=== PATIENT | male | born 1930 | race Caucasian/White ===

== ENCOUNTER 2016-11-22 09:19 | Inpatient (IN) | payer MEDICARE, OTHER ==
[~2016-11-22] VITALS: Ht 167.6 cm; Wt 85.0 kg
[2016-11-22] VITALS (13 sets, daily range): BP systolic 112–131; BP diastolic 71–89; PULSE 81–97; RESP 18–20; TEMP 97.3–98.8; O2SAT 96–98
[~2016-11-22 09:19] MED LIST: ALFU1TAB10 PO; ASPI81 PO; CALC250 PO; CELE10TA9 PO; CHOL4POW4 PO; COMMODE 3:1; DORZO2%O EACH EYE; Hydrochlorothiazide PO; LATA.005%O EACH EYE; MVI PO; PLAV75TA PO; PRIN20TA2 PO; VITA20003 PO; ZOCO40TA PO
[2016-11-22] MEDS ORDERED: CLOP75TA PO (09:36)
[2016-11-22] MEDS ORDERED: CALC500T35 (09:36)
[2016-11-22] MEDS ORDERED: B-122000 PO (09:36)
[2016-11-22] MEDS ORDERED: SIMV10TA PO (09:36)
[2016-11-22] MEDS ORDERED: CHOL4POW3 PO (09:36)
[2016-11-22] MEDS ORDERED: CITA10TA4 PO (09:36)
[2016-11-22] MEDS ORDERED: DORZ2SOL EACH EYE (09:36)
[2016-11-22] MEDS ORDERED: ALFU10TA2 PO (09:36)
[2016-11-22] MEDS ORDERED: VITA200013 (09:36)
[2016-11-22] MEDS ORDERED: ASPI-110 PO (09:36)
[2016-11-22] MEDS ORDERED: LISI20TA PO (09:36)
[2016-11-22] MEDS ORDERED: LATA0.002 EACH EYE (09:36)
--- NOTE | 2016-11-22 09:40 | PD ---
HPI Chief Complaint: Syncope/Near-Syncope Time Seen by Provider: 09:26 Travel History International Travel<30 days: No Contact w/Intl Traveler<30days: No Traveled to known affect area: No History of Present Illness HPI 85-year-old male came to the emergency room with history of dizziness, nausea and vomiting brought by EMS. Patient's says that he started dry heaving this morning and at one point she thought he was having seizure which made her call 911. Patient looks very comfortable right now and is not complaining of any pain, chest pain or any other symptoms. He does not recall about the vomiting or seizure. PFS Past Medical History Narrative Medical List of his past medical history is reviewed from the nursing note. 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; UNKNOWN WHAT TYPE) Hiatal Hernia: No Hypertension: Yes Immune Disorder: No Kidney Stones: No Musculoskeletal: Yes Neurologic: No Psychiatric: No Reproductive: No Respiratory: No Migraines: No Myocardial Infarction: Yes Radiation Therapy: No Renal Failure: Yes Seizures: No Sickle Cell Disease: No Sleep Apnea: Yes Thyroid Disease: No Ulcer: No Past Surgical History Abdominal Surgery: Yes (APPENDECTOMY) AICD: No Appendectomy: Yes Arteriovenous Shunt: No Cardiac Surgery: No Cholecystectomy: Yes Ear Surgery: No Endocrine Surgery: No Eye Surgery: Yes (RIGHT EYE CATARACT SX) Genitourinary Surgery: Yes Gynecologic Surgery: No Insulin Pump: No Joint Replacement: No Oral Surgery: No Pacemaker: No Thoracic Surgery: Yes (STENT PLACEMENT) Other Surgery: Yes (CARPAL TUNNEL RELEASE BK) Social History Alcohol Use: Yes ("occasionally") Tobacco Use: Yes (CIGARS OCCASIONALLY) Substance Use: No Allergies-Medications (Allergen,Severity, Reaction): Coded Allergies: Vioxx (Verified Allergy, Severe, Diarrhea, 11/22/16) Comments List of his allergies reviewed from the nursing note. Reported Meds & Prescriptions Reported Meds & Active Scripts Active Reported Calcium (Oyster Shell) 500 Mg Tab 250 Vitamin D (Cholecalciferol) 2,000 Unit Cap B-12 (Cyanocobalamin) 2,000 Mcg Tab 2,000 Mcg PO DAILY Aspirin 81 (Aspirin) 81 Mg Tabdr 81 Mg PO DAILY Cholestyramine 4 Gm/Dose Powd 4 Gm PO BID 1 level scoopful of powder contains 4 grams of cholestyramine. Simvastatin 10 Mg Tab 10 Mg PO DAILY Latanoprost Opth Drops (Latanoprost) 0.005% Drops 1 Drop EACH EYE HS Refrigerate until opened. Dorzolamide Opth Drops (Dorzolamide HCl) 2% Soln 1 Drop EACH EYE TID Alfuzosin ER 24 HR 10 Mg Tab 10 Mg PO DAILY Clopidogrel (Clopidogrel Bisulfate) 75 Mg Tab 75 Mg PO DAILY Citalopram (Citalopram Hydrobromide) 10 Mg Tab 5 Mg PO DAILY Lisinopril-Hctz 20-12.5 Mg Tab 1 Tab PO DAILY Narrative Medication List of his home medications reviewed from the nursing note. Review of Systems Except as stated in HPI: all other systems reviewed are Neg Physical Exam Narrative GENERAL: Awake, alert, elderly, hard of hearing, no obvious distress SKIN: Warm and dry. HEAD: Atraumatic. Normocephalic. EYES: Pupils equal and round. No scleral icterus. No injection or drainage. ENT: No nasal bleeding or discharge. Mucous membranes pink and moist. NECK: Trachea midline. No JVD. CARDIOVASCULAR: Regular rate and rhythm. No murmur appreciated. RESPIRATORY: No accessory muscle use. Clear to auscultation. Breath sounds equal bilaterally. GASTROINTESTINAL: Abdomen soft, non-tender, nondistended. Hepatic and splenic margins not palpable. MUSCULOSKELETAL: No obvious deformities. No clubbing. No cyanosis. No edema. NEUROLOGICAL: Awake and alert. No obvious cranial nerve deficits. Motor grossly within normal limits. Normal speech. PSYCHIATRIC: Appropriate mood and affect; insight and judgment normal. Data Data Last Documented VS Vital Signs Date Time Temp Pulse Resp B/P Pulse Ox O2 Delivery O2 Flow Rate FiO2 11/22/16 09:45 96 Room Air 11/22/16 09:23 97.3 18 117/71 Orders Prothrombin Time / Inr (Pt) (11/22/16 09:54) Complete Blood Count With Diff (11/22/16 09:54) Basic Metabolic Panel (Bmp) (11/22/16 09:54) Troponin I (11/22/16 09:54) Ct Brain W/O Iv Contrast(Rout) (11/22/16 09:54) Ecg Monitoring (11/22/16 09:54) Iv Access Insert/Monitor (11/22/16 09:54) Oximetry (11/22/16 09:54) Sodium Chloride 0.9% Flush (Ns Flush) (11/22/16 10:00) Sodium Chlorid 0.9% 500 Ml Inj (Ns 500 M (11/22/16 10:00) Chest, Single Ap (11/22/16 ) Aspirin Chew (Aspirin Chew) (11/22/16 11:00) Admit Order (Ed Use Only) (11/22/16 11:17) Labs Laboratory Tests Test 11/22/16 09:50 White Blood Count 5.5 TH/MM3 Red Blood Count 3.83 MIL/MM3 Hemoglobin 13.2 GM/DL Hematocrit 38.9 % Mean Corpuscular Volume 101.6 FL Mean Corpuscular Hemoglobin 34.6 PG Mean Corpuscular Hemoglobin 34.1 % Concent Red Cell Distribution Width 13.4 % Platelet Count 71 TH/MM3 Mean Platelet Volume 11.7 FL Neutrophils (%) (Auto) 87.3 % Lymphocytes (%) (Auto) 7.3 % Monocytes (%) (Auto) 5.0 % Eosinophils (%) (Auto) 0.1 % Basophils (%) (Auto) 0.3 % Neutrophils # (Auto) 4.8 TH/MM3 Lymphocytes # (Auto) 0.4 TH/MM3 Monocytes # (Auto) 0.3 TH/MM3 Eosinophils # (Auto) 0.0 TH/MM3 Basophils # (Auto) 0.0 TH/MM3 CBC Comment AUTO DIFF Differential Comment AUTO DIFF CONFIRMED Platelet Estimate LOW Platelet Morphology Comment ENLARGED Helmet Cells OCC [place] Cells 1+ Acanthocytes 1+ Keratocytes OCC Prothrombin Time 13.3 SEC Prothromb Time International 1.2 RATIO Ratio Sodium Level 134 MEQ/L Potassium Level 3.8 MEQ/L Chloride Level 97 MEQ/L Carbon Dioxide Level 25.9 MEQ/L Anion Gap 11 MEQ/L Blood Urea Nitrogen 20 MG/DL Creatinine 1.44 MG/DL Estimat Glomerular Filtration 47 ML/MIN Rate Random Glucose 156 MG/DL Calcium Level 8.8 MG/DL Troponin I 1.81 NG/ML [facility] Medical Decision Making Medical Screen Exam Complete: Yes Emergency Medical Condition: Yes Medical Record Reviewed: Yes Interpretation(s) Twelve-lead EKG was reviewed by me. Normal sinus rhythm, right bundle branch block, right axis deviation. Heart rate of 86 bpm. Morphology of QRS looks different from the last EKG and records which was from September 2014. Differential Diagnosis CVA, TIA, intracranial bleed Narrative Course 11:10 AM blood test results of back and the troponin is significantly elevated. I went back and asked the patient again about chest pain and he is still denying. His is here and confirms that story. Patient does have history of coronary artery disease and had a stent put in in 2007. It was done by Dr. Garrett and the patient and his are requesting Dr. Garrett. A call has been placed to him. Rest of the blood test result shows thrombocytopenia. I've given him 2 baby aspirin. Given the [facility] at [facility] I have not ordered any heparin. I'll discuss with Dr. Garrett. Patient was admitted to the residents to CICU. His CAT scan of the head was stable without any acute changes. 11:22 AM case was discussed with Dr. Valdes who is covering for Dr. Garrett. He will follow-up on the patient. Critical Care Narrative Aggregate critical care time was 30 minutes. Time to perform other separately billable procedures was not included in the critical care time. My time did not include minutes spent treating any other patients simultaneously or on activities that did not directly contribute to the patient's treatment. The services I provided to this patient were to treat and/or prevent clinically significant deterioration that could result in: Syncope, elevated troponin, acute coronary syndrome I provided critical care services requiring my management, as noted below: Chart data review, documentation time, medication orders and management, vital sign assessments/reviewing monitor data, ordering and reviewing lab tests, ordering and interpreting/reviewing x-rays and diagnostic studies, care of the patient and discussion of the patient with the admitting physicians. Procedures EKG Prior to Arrival: Yes Physician Communication Physician Communication Dr. Valdes Diagnosis Primary Impression: Acute coronary syndrome Additional Impressions: Elevated troponin I level Syncope Qualified Code: R55 - Syncope, unspecified syncope type Thrombocytopenia Admitting Information Admitting Physician Requests: it Abi Ontiveros MD Nov 22, 2016 09:40
[2016-11-22] MEDS ORDERED: SODIUM CHLORID 0.9% 500 ML INJ 500 ML IV ONE (10:00)
[2016-11-22] MEDS ORDERED: SODIUM CHLORIDE 0.9% FLUSH 5 ML FLUSH IVF PRN (10:00)
[2016-11-22 10:20] LABS: AUTOMATED NEUTROPHIL # 4.8 TH/MM3 (1.8-7.7); BASOPHIL % 0.3 % (0.0-2.0); EOSINOPHIL % 0.1 % (0.0-4.0); HEMATOCRIT 38.9 % (39.0-51.0); LYMPH % 7.3 % (9.0-44.0); LYMPHOCYTE # 0.4 TH/MM3 (1.0-4.8); MEAN CELL VOLUME 101.6 FL (80.0-100.0); MEAN CORPUSCULAR HEMOGLOBIN 34.6 PG (27.0-34.0); MEAN CORPUSCULAR HGB CONC 34.1 % (32.0-36.0); NEUT % 87.3 % (16.0-70.0); PLATELET COUNT 71 TH/MM3 (150-450); RED BLOOD COUNT 3.83 MIL/MM3 (4.50-5.90); RED CELL DISTRIBUTION WIDTH 13.4 % (11.6-17.2); WHITE BLOOD COUNT 5.5 TH/MM3 (4.0-11.0)
[2016-11-22 10:24] LABS: HEMO FLAGS AUTO DIFF
[2016-11-22 10:28] LABS: BICARBONATE 25.9 MEQ/L (21.0-32.0); POTASSIUM 3.8 MEQ/L (3.5-5.1)
[2016-11-22 10:29] LABS: INTERNATIONAL NORMALIZED RATIO 1.2 RATIO; PROTHROMBIN TIME - PATIENT 13.3 SEC (9.8-11.6)
[2016-11-22 10:52] LABS: PLATELET ESTIMATE SMEAR LOW (NORMAL); PLATELET MORPHOLOGY ENLARGED (NORMAL); SCAN/DIFF AUTO DIFF CONFIRMED
[2016-11-22 10:53] LABS: ACANTHOCYTES 1+ (NORMAL); BURR CELLS 1+ (NORMAL); HELMET CELLS OCC (NORMAL); KERATOCYTES OCC (NORMAL)
--- NOTE | 2016-11-22 10:53 | RADRPT ---
EXAM DATE/TIME: 11/22/2016 10:38 [facility] COMPARISON: No previous studies available for comparison. INDICATIONS : Near syncopal episode. RADIATION DOSE: 56.35 CTDIvol (mGy) MEDICAL HISTORY : Carcinoma, not otherwise specified. Hypertension. Cardiovascular disease SURGICAL HISTORY : None. ENCOUNTER: Initial ACUITY: 1 day PAIN SCALE: 0/10 LOCATION: cranial TECHNIQUE: Multiple contiguous axial images were obtained of the head. Using automated exposure control and adj ustment of the mA and/or kV according to patient size, radiation dose was kept as low as reasonably a chievable to obtain optimal diagnostic quality images. FINDINGS: There is marked central and cortical atrophy with dilatation of ventricular and sulcal spaces. There is no parenchymal hemorrhage, acute infarction or mass lesion identified. There are no extra-axial fluid collections appreciated. The posterior fossa is unremarkable with midline fourth ventricle. T he portion of the orbits and paranasal sinuses visualized are unremarkable. CONCLUSION: Stable examination. No interval change Erik Shaikh MD on November 22, 2016 at 10:51 Board Certified Radiologist. This report was verified electronically.
[2016-11-22] MEDS ORDERED: ASPIRIN 81 MG CHEW TAB CHEW ONE (11:00)
--- NOTE | 2016-11-22 11:32 | RADRPT ---
EXAM DATE/TIME: 11/22/2016 11:06 [facility] COMPARISON: CHEST SINGLE AP, September 30, 2014, 10:09. INDICATIONS : Syncope, Short of Breath. MEDICAL HISTORY : Carcinoma, not otherwise specified. Hypertension. Cardiovascular disease SURGICAL HISTORY : Stent. ENCOUNTER: Initial ACUITY: 1 day PAIN SCORE: 0/10 LOCATION: Bilateral chest FINDINGS: A single view of the chest demonstrates mild perihilar vascular congestion is developing airspace dis ease in the lung bases right greater than left. The cardiac silhouette remains widened. Small lung v olumes. No pneumothorax.. Osseous structures are intact. CONCLUSION: Some pulmonary vascular congestion with bilateral infiltrates right greater left. Cardiac silhouette is widened Erik Shaikh MD on November 22, 2016 at 11:29 Board Certified Radiologist. This report was verified electronically.
--- NOTE | 2016-11-22 11:36 | HHI.HP ---
HPI Service Family Medicine Team A Dr. English attending Dr. Yee PGY2 Dr. Rivera PGY1 Dr. Sierra PGY3 Primary Care Physician Nikky Evangelista MD Admission Diagnosis syncope, elevated troponin, thrombocytopenia Diagnoses: International Travel<30 Days: No Contact w/Intl Traveler<30days: No Known Affected Area: No History of Present Illness This is an 85 yo male who presented to ED by [facility] for dizziness, N/V and weakness. reports she woke up around 7 am and her was sitting in chair with a bucket, she states there was yellow fluid. She states he was walking to the bathroom and started "bouncing off the gutierrez" she said his whole body was shaking and he was not responsive. She ended up helping him to the ground, his eyes were open, but notes he was not with it. She took his BP (she is a retired nurse) 90/44. called 911. She states evac came, and they stood him up and his blood pressure got even lower. The they decided to bring him to the ER. The patient does not remember the events this morning. The patient states he remembers waking up this morning, his knees were bothering him and he was having a hard time walking so went and sat in the chair. There was no loss of bowel or bladder. He did not bite is tongue. He does remember the EMS coming, he said they looked like, "huge elephants." Nothing like this has ever happened before. He is scheduled to see Dr. Garrett in Dec. He saw his PCP last month and was given a clean bill. In the ED patient was found to have an elevated troponin of 1.8, renal insufficiency, and EKG findings significant for new right bundle branch block. Dr Medina was contacted (covering for Dr. Garrett who has seen the patient in the past). 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 ) Ears, nose, mouth, throat: COMPLAINS OF: Hearing loss Respiratory: DENIES: Cough, Shortness of breath Cardiovascular: COMPLAINS OF: Lower Extremity Edema, DENIES: Chest pain, Palpitations, Syncope Gastrointestinal: COMPLAINS OF: Nausea, Vomiting, DENIES: Abdominal pain Musculoskeletal: COMPLAINS OF: Joint pain, Muscle aches, Stiffness Hematologic/lymphatic: COMPLAINS OF: Bruising Neurologic: COMPLAINS OF: Abnormal gait, Headache, Poor Balance Psychiatric: DENIES: Mood changes Past Family Social History Past Medical History Hx Hepatitis HTN NM wx Stent placement 08 Colitis sleep apnea Past Surgical History Bilateral knee replacements' appendectomy carpal tunnel surgery both hands Reported Medications Reported Calcium (Oyster Shell) 500 Mg Tab 250 Vitamin D (Cholecalciferol) 2,000 Unit Cap B-12 (Cyanocobalamin) 2,000 Mcg Tab 2,000 Mcg PO DAILY Aspirin 81 (Aspirin) 81 Mg Tabdr 81 Mg PO DAILY Cholestyramine 4 Gm/Dose Powd 4 Gm PO BID 1 level scoopful of powder contains 4 grams of cholestyramine. Simvastatin 10 Mg Tab 10 Mg PO daily Latanoprost Opth Drops (Latanoprost) 0.005% Drops 1 Drop EACH EYE HS Refrigerate until opened. Dorzolamide Opth Drops (Dorzolamide HCl) 2% Soln 1 Drop EACH EYE TID Alfuzosin ER 24 HR 10 Mg Tab 10 Mg PO DAILY Clopidogrel (Clopidogrel Bisulfate) 75 Mg Tab 75 Mg PO DAILY Citalopram (Citalopram Hydrobromide) 10 Mg Tab 5 Mg PO DAILY Lisinopril-Hctz 20-12.5 Mg Tab 1 Tab PO DAILY Allergies: Coded Allergies: Vioxx (Verified Allergy, Severe, Diarrhea, 11/22/16) Family History Mother of heart trouble at a young age- multiple NM CHF Physical Exam Vital Signs Vital Signs Date Time Temp Pulse Resp B/P Pulse Ox O2 Delivery O2 Flow Rate FiO2 11/22/16 09:37 96 Room Air 11/22/16 09:23 97.3 18 117/71 96 Physical Exam GENERAL: This is a well-nourished, well-developed patient, in no apparent distress. Hearing aids in. SKIN: multiple ecchymoses of LE. 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 HEAD: Atraumatic. Normocephalic. No temporal or scalp tenderness. EYES: RT Pupil equal round and reactive. LT pupil non reactive. Extraocular motions intact. No scleral icterus. No injection or drainage. ENT: Nose without bleeding, purulent drainage or septal hematoma. Throat without erythema, tonsillar hypertrophy or exudate. Uvula midline. Airway patent. NECK: Trachea midline. No JVD or lymphadenopathy. Supple, nontender, no meningeal signs. CARDIOVASCULAR: Regular rate and rhythm without murmurs, gallops, or rubs. RESPIRATORY: Clear to auscultation. Breath sounds equal bilaterally. No wheezes , rales, or rhonchi. GASTROINTESTINAL: Abdomen soft, non-tender, nondistended. No guarding. MUSCULOSKELETAL: Extremities without clubbing, or cyanosis. +1LE edema of LE. No joint tenderness, effusion, or edema noted. No calf tenderness. NEUROLOGICAL: Awake and alert. Motor and sensory grossly within normal limits. Able to lift LE against gravity. Normal speech. Laboratory Laboratory Tests Test 11/22/16 09:50 White Blood Count 5.5 Red Blood Count 3.83 Hemoglobin 13.2 Hematocrit 38.9 Mean Corpuscular Volume 101.6 Mean Corpuscular Hemoglobin 34.6 Mean Corpuscular Hemoglobin 34.1 Concent Red Cell Distribution Width 13.4 Platelet Count 71 Mean Platelet Volume 11.7 Neutrophils (%) (Auto) 87.3 Lymphocytes (%) (Auto) 7.3 Monocytes (%) (Auto) 5.0 Eosinophils (%) (Auto) 0.1 Basophils (%) (Auto) 0.3 Neutrophils # (Auto) 4.8 Lymphocytes # (Auto) 0.4 Monocytes # (Auto) 0.3 Eosinophils # (Auto) 0.0 Basophils # (Auto) 0.0 CBC Comment AUTO DIFF Differential Comment AUTO DIFF CONFIRMED Platelet Estimate LOW Platelet Morphology Comment ENLARGED Helmet Cells OCC Valerio Cells 1+ Acanthocytes 1+ Keratocytes OCC Prothrombin Time 13.3 Prothromb Time International 1.2 Ratio Sodium Level 134 Potassium Level 3.8 Chloride Level 97 Carbon Dioxide Level 25.9 Anion Gap 11 Blood Urea Nitrogen 20 Creatinine 1.44 Estimat Glomerular Filtration 47 Rate Random Glucose 156 Calcium Level 8.8 Troponin I 1.81 Result Diagram: 11/22/16 0950 11/22/16 0950 Imaging Last Impressions Head CT 11/22/16 0954 Signed Impressions: Service Date/Time: Tuesday, November 22, 2016 10:38 - CONCLUSION: Stable examination. No interval change Erik Shaikh MD Assessment and Plan Assessment and Plan 85 yo male presents to ED w/N/V/ presyncope found to have elevated troponin and EKG findings. Discussed Condition With Dr. Yee ED physician wdw Dr. English Problem List: (1) Elevated troponin I level Status: Acute Plan: Upon on admission 1.81 with EKG findings suggestive of right bundle branch block. No ST elevations noted. Patient does have a cardiac history. He is denying active chest pain. Of note patient has some renal insufficiency with a creatinine of 1.44, baseline is less than 1. Dr. Valdes is aware of the patient and will make further recommendations. (2) Pre-syncope Status: Acute Plan: Patient presenting with sounds like presyncopal. There was no loss of consciousness. reported some jerking movements, the patient has no history of seizures. There were no loss of bladder or bowel dysfunction. There was no biting of the tongue. Patient noted to have hypotension at the time of the event. Likely causes include vasovagal versus orthostatic hypotension versus seizure versus other. - We'll hold BP medications as patient is still hypotensive - Ortho static vitals - telemetry - US carotids - ECHO (last was in 2007 in EMR, likely has one after this) - PT eval (3) CAD (coronary artery disease) Status: Chronic Plan: -Medical history significant for NM with stent placement. We'll continue patient's aspirin and Plavix. (4) Thrombocytopenia Status: Acute Plan: Марина on admission 71. Baseline in the 90s. Unclear etiology. (5) HTN (hypertension) Status: Chronic Plan: We'll hold patient's home lisinopril and hydrochlorothiazide for hypotension (6) FELIBERTO (acute kidney injury) Status: Acute Plan: Creatinine on admission 1.44. Baseline appears to be 0.6. We'll avoid nephrotoxic agents including his ISRA inhibitor and provide gentle hydration. (7) FEN Status: Acute Plan: Fluids: gentle hydration IVF NS @ 100 cc/hr for renal insufficiency Electrolytes: Na 134, getting gentle hydration Nutrition: heart healthy diet PT DVT prophylaxis with SCDs Physician Certification 2 Midnight Certification Type: Admission for Inpatient Services Order for Inpatient Services The services are ordered in accordance with Medicare regulations or non- Medicare payer requirements, as applicable. In the case of services not specified as inpatient-only, they are appropriately provided as inpatient services in accordance with the 2-midnight benchmark. Estimated LOS (days): 3 days is the estimated time the patient will need to remain in the hospital, assuming treatment plan goals are met and no additional complications. Post-Hospital Plan: Not yet determined Luh Sierra MD R3 Nov 22, 2016 11:36
[2016-11-22] MEDS ORDERED: NALOXONE HCL 0.4 MG/ML AMP IV PRN (12:15)
[2016-11-22] MEDS ORDERED: ONDANSETRON HCL 4 MG/2 ML VIAL IVP PRN (12:15)
[2016-11-22] MEDS ORDERED: SODIUM CHLORIDE 0.9% FLUSH 5 ML FLUSH FLUSH PRN (12:15)
[2016-11-22] MEDS ORDERED: ACETAMINOPHEN 325 MG TAB PO PRN (12:15)
[2016-11-22] MEDS ORDERED: SODIUM CHLOR 0.9% 1000 ML INJ 1,000 ML IV SCH (13:00)
[2016-11-22] MEDS ORDERED: POTASSIUM CHLORIDE 20 MEQ CONTROLLED RELEASE TAB PO ONE (14:00)
[2016-11-22] MEDS ORDERED: FUROSEMIDE 20 MG/2 ML VIAL IV PUSH ONE (14:00)
--- NOTE | 2016-11-22 14:04 | HHI.FPPN ---
Addendum to progress note ADDENDUM Additional information BNP resulted elevated at 1021. Patient unsure of the last ECHO. - STOP IVF - Lasix 20 mg IV x1 (BP is now 114/83) will have to diuresis gently because of FELIBERTO and borderline hypotension - 20 meq KCL x1 - Strict I & Os - Will monitor for response and diuresis as needed. - ECHO previously ordered and pending Luh Sierra MD R3 Nov 22, 2016 14:04
--- NOTE | 2016-11-22 14:51 | EKG ---
Date Performed: 11/22/2016 Time Performed: 09:21:27 PTAGE: 85 years EKG: Sinus rhythm WITH OCCASIONAL SUPRAVENTRICULAR PREMATURE COMPLEXES POSSIBLE LEFT ATRIAL ENLARGEMENT RIGHT BUNDLE B RANCH BLOCK ANTEROSEPTAL MYOCARDIAL INFARCTION Bundle branch block and anteroseptal injury are both n ew since prior tracing Clinical correlation is strongly recommended ABNORMAL ECG PREVIOUS TRACING : 09/30/2014 09.49 DOCTOR: Harman Del Rio Interpretating Date/Time 11/22/2016 14:50:50
--- NOTE | 2016-11-22 17:04 | MB ---
cc: CONNER NEWBY MD DATE OF CONSULTATION 11/22/16 REASON FOR CONSULTATION Elevated troponin HISTORY OF PRESENT ILLNESS The patient is a very pleasant 85-hour gentleman who tried to get up to go to the bathroom but became acutely weak and somewhat disoriented. His found him to be unstable with some shaking and jerking movements. The patient himself describes feeling like he was shaking "like a dog", but he denies any chest pain at all during this episode or any time recently. Because of these symptoms, he was brought to the hospital and his initial troponin was elevated and thus I was consulted. He is currently asymptomatic and hoping to be discharged home. He denies any chest pain at all. No shortness of breath, lightheadedness, dizziness, currently just the aforementioned episode. PAST MEDICAL HISTORY 1. Coronary artery disease with HI and stent placement 2007, 2. Hepatitis 3. Hypertension. MEDICATIONS Current, 1. Aspirin 81 mg daily. 2. Celexa 5 mg daily 3. Plavix 5 mg daily. 4. Flomax 0.4 mg daily. 5. Pravachol 20 mg daily. ALLERGIES VIOXX PHYSICAL EXAMINATION VITAL SIGNS: Afebrile, pulse 97, respiratory 20, BP 114/83 satting 98 on room air. GENERAL: A pleasant elderly gentleman in no distress. NECK: No JVD. LUNGS: Clear to auscultation bilaterally. CARDIOVASCULAR: Regular rate and rhythm. No murmurs appreciated. ABDOMEN: Benign. EXTREMITIES: No edema. LABORATORY DATA Sodium 134, potassium 2.8, chloride 97, bicarb 25.9, BUN 20, creatinine 1.44, glucose 156, troponin 1.81. BNP is 1021. Urinalysis has not been done yet. INR is 1.2, white count 5.5, hematocrit 38.9, platelets 71. IMAGING STUDIES Head CT was negative. CARDIOLOGY STUDIES EKG shows sinus rhythm with right bundle-branch block. IMPRESSION 1. Elevated troponin. The patient's elevated troponin I suspect is a nonspecific finding. Given the patient's description, I think the most likely etiology of his presentation is something like a urine infection and a UA has been ordered. He has no chest pain and is obviously quite comfortable so acute coronary syndrome seems unlikely. I will trend his enzymes and make consideration toward nuclear stress test versus possible cardiac catheterization depending on the results of his blood work. Also his creatinine is a little bit above baseline, although this alone likely will not account for his elevated troponin and BNP. We will also have him undergo an echocardiogram. Further recommendations will be based on his clinical course. Thank you again for the opportunity to participate in this patient's care. MD GREGORIA Herr/ /4:25 PM /4:46 PM
[2016-11-22] MEDS ORDERED: HEPARIN SODIUM - IV 10,000 UNITS/10 ML VIAL IV PRN ×2 (20:15)
[2016-11-22] MEDS ORDERED: HEPARIN SODIUM - IV 10,000 UNITS/10 ML VIAL IV ONE (20:15)
[2016-11-22] MEDS ORDERED: HEPARIN 25,000 UNITS-D5W 250 ML - PREMIX IV SCH (20:15)
[2016-11-22] MEDS: SODIUM CHLORIDE 0.9% FLUSH 5 ML FLUSH FLUSH SCH (21:00)
[2016-11-23] VITALS (27 sets, daily range): BP systolic 105–139; BP diastolic 59–96; PULSE 63–110; RESP 18–22; TEMP 97.4–98.1; O2SAT 94–99
[2016-11-23 00:04] LABS: APTT (PATIENT) 67.6 SEC (24.3-30.1)
[2016-11-23] MEDS: CHOLESTYRAMINE 4 GM PACKET PO SCH ×3 (01:01→21:25)
[2016-11-23 04:15] LABS: HEMATOCRIT 38.4 % (39.0-51.0); MEAN CORPUSCULAR HEMOGLOBIN 34.2 PG (27.0-34.0); MEAN CORPUSCULAR HGB CONC 34.2 % (32.0-36.0); PLATELET COUNT 75 TH/MM3 (150-450); RED BLOOD COUNT 3.84 MIL/MM3 (4.50-5.90); RED CELL DISTRIBUTION WIDTH 13.3 % (11.6-17.2); WHITE BLOOD COUNT 6.2 TH/MM3 (4.0-11.0)
[2016-11-23 04:25] LABS: APTT (PATIENT) 48.1 SEC (24.3-30.1)
[2016-11-23 04:37] LABS: ALT (GPT) 29 U/L (12-78); ANION GAP 11 MEQ/L (5-15); AST (GOT) 91 U/L (15-37); BICARBONATE 25.7 MEQ/L (21.0-32.0); BLOOD UREA NITROGEN 29 MG/DL (7-18); CHLORIDE 97 MEQ/L (98-107); GLOMERULAR FILTRATION RATE 43 ML/MIN (>89); POTASSIUM 3.9 MEQ/L (3.5-5.1); SODIUM (NA) 134 MEQ/L (136-145)
[2016-11-23 04:39] LABS: ALKALINE PHOSPHATASE 62 U/L (45-117); TOTAL BILIRUBIN ADULT 0.8 MG/DL (0.2-1.0)
[2016-11-23 04:41] LABS: REVIEW FLAG FINAL
[2016-11-23] MEDS ORDERED: FUROSEMIDE 20 MG/2 ML VIAL IV PUSH ONE (07:45)
--- NOTE | 2016-11-23 08:05 | RADRPT ---
EXAM DATE/TIME: 11/23/2016 07:26 [place] COMPARISON: No previous studies available for comparison. INDICATIONS : Syncope. MEDICAL HISTORY : Myocardial infarction. Hypertension. Hearing loss. Coronary artery disease. Anticoagulant therapy, Aspirin. Sleep apnea. Renal failure. Arthritis. Osteoporosis. Post traumatic stress disorder. Thrombo cytopenia. Hepatitis. Cancer. SURGICAL HISTORY : Cholecystectomy. Appendectomy. Coronary artery stent. Bilateral carpal tunnel surgery. Right cataract removal. Bilateral knee surgery. ENCOUNTER: Initial ACUITY: 1 day PAIN SCORE: 0/10 LOCATION: Bilateral neck PEAK SYSTOLIC VELOCITIES (cm/sec): ICA/CCA RATIO: Right: 1.4 Left: 1.2 ICA: Right: 78 Left: 57 CCA: Right: 54 Left: 48 ECA: Right: 56 Left: 70 VERTEBRAL: Right: 51 antegrade Left: 32 antegrade Elevated flow velocities and ICA/CCA ratios have been found to correlate with increased degrees of vessel stenosis, calculated as percentage of diameter relative to a normal segment of distal ICA/CCA FINDINGS: RIGHT CAROTID: No significant stenosis is visualized. Focal eccentric plaque throughout the internal carotid and com mon carotid arteries without focal stenosis. The waveforms are within normal limits. LEFT CAROTID: No significant stenosis is visualized. Mild atherosclerotic disease The waveforms are within normal limits. VERTEBRAL ARTERIES: Antegrade flow is seen in both vertebral arteries. MISCELLANEOUS: None. CONCLUSION: Numerous prominent eccentric calcifications consistent with atherosclerotic disease but no two-dimens ional stenosis is seen. Erik Shaikh MD on November 23, 2016 at 8:00 Board Certified Radiologist. This report was verified electronically.
[2016-11-23] MEDS: CLOPIDOGREL 75 MG TAB PO SCH ×2 (09:00→09:19)
[2016-11-23] MEDS: ASPIRIN EC 81 MG TABEC PO SCH ×2 (09:00→09:19)
[2016-11-23] MEDS: PRAVASTATIN SOD 20 MG TAB PO SCH (09:00)
[2016-11-23] MEDS ORDERED: NON-FORMULARY DRUG (Lisinopril-Hctz 1 TAB) PO SCH (09:00)
[2016-11-23] MEDS: CYANOCOBALAMIN 1,000 MCG TAB PO SCH (09:19)
[2016-11-23] MEDS: CITALOPRAM HYDROBROMIDE 20 MG TAB PO SCH (09:21)
[2016-11-23] MEDS: TAMSULOSIN HCL 0.4 MG CAP PO SCH (09:21)
[2016-11-23] MEDS: SODIUM CHLORIDE 0.9% FLUSH 5 ML FLUSH FLUSH SCH ×2 (09:23→19:55)
--- NOTE | 2016-11-23 10:54 | HHI.FPPN ---
Subjective Remarks Overnight, DRE. AFVSS. Poor I/O despite diuretics- 540mL In, 400mL out. C/o worsening vision in "good" R eye and that hearing aids ran out of battery. Otherwise, ROS neg- Denies f/c, n/v, SHIN/SOB, CP/palpitations, abd/leg pain. ( Susi Rivera MD R1) Objective Vitals Vital Signs Date Time Temp Pulse Resp B/P Pulse Ox O2 Delivery O2 Flow Rate FiO2 11/23/16 07:00 97.5 67 18 105/59 96 11/23/16 05:00 81 11/23/16 04:00 88 11/23/16 03:00 86 11/23/16 03:00 97.6 86 118/81 95 11/23/16 02:00 78 11/23/16 01:00 79 11/23/16 00:00 84 11/22/16 23:54 97.5 93 125/83 97 11/22/16 23:00 93 11/22/16 22:00 87 11/22/16 21:00 82 11/22/16 20:00 93 11/22/16 19:00 98.8 81 112/76 98 11/22/16 19:00 81 11/22/16 18:00 81 11/22/16 17:00 98.5 91 18 125/89 97 11/22/16 17:00 91 11/22/16 14:00 97 20 114/83 98 Room Air 11/22/16 13:00 95 19 131/84 98 Room Air 11/22/16 12:30 90 20 124/83 97 Room Air I/O 11/22/16 11/22/16 11/22/16 11/23/16 11/23/16 11/23/16 07:00 15:00 23:00 07:00 15:00 23:00 Intake Total 240 ml 300 ml Output Total 400 ml Balance 240 ml -100 ml Intake Oral 240 ml 300 ml Output Urine Total 400 ml # Voids 2 (Susi Rivera MD R1) Result Diagram: 11/23/1631011/23/16310 Imaging Last Impressions Head CT 11/22/16 0954 Signed Impressions: Service Date/Time: Tuesday, November 22, 2016 10:38 - CONCLUSION: Stable examination. No interval change Erik Shaikh MD Chest X-Ray 11/22/16 0000 Signed Impressions: Service Date/Time: Tuesday, November 22, 2016 11:06 - CONCLUSION: Some pulmonary vascular congestion with bilateral infiltrates right greater left. Cardiac silhouette is widened Erik Shaikh MD Objective Remarks CONST: Adult male in NAD DERM: multiple ecchymoses of LE. 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 HEENT: Wearing glasses with L eyepiece blackened. R pupil reactive to light, L pupil non-reactive. CV: RRR. No murmurs RESP: Lungs CTAB GI: Soft, NTND MSK: Trace edema NEURO: Grossly motor and sensory function intact PSYCH: Appropriate affect. Good humor- likes to tell puns. (Susi Rivera MD R1) A/P Assessment and Plan 85 yo male presents to ED w/N/V/ presyncope found to have elevated troponin and EKG findings. Discharge Planning 1-2 days, pending Cardiology recommendations SDW: Dr English, Dr Chavez, Dr Sierra, MS4 Yomi (Susi Rivera MD R1) Attending Attestation A detailed discussion involving Dr Sierra, Dr Chavez, Dr Rivera and MS Yomi about patients admission occurred this am, Patient was then seen and examined, Agree with details of this note, Agree with Assessment and Plan, See Orders. ( Trevor English MD) Problem List: (1) KS (myocardial infarction) Status: Acute Plan: EKG on admission with new RBBB and hypotension. No ST elevations. Denying CP or palpitations. Trops 1.8 ->16 ->18. BNP 1000. Cardiology consulted U/S Carotids (11/22/15): Eccentric calcifications suggestive of atherosclerotic dz, no 2D stenosis Plan Hold home lisinopril and HCTZ while hypotensive. Continue telemetry, O2 supplementation PRN for sats 92%+ Touch base with cardiology re: NST vs possible cardiac cath vs supportive management Heparin ggt ECHO pending (last known 2007) PT eval pending Orthostatic vitals pending U/A pending (rule out UTI) (2) Right bundle branch block (RBBB) Status: Acute Plan: EKG: new RBBB on admission. See plan KS (3) CAD (coronary artery disease) Status: Chronic Plan: Hx CAD s/p stent (2007) Hold home aspirin and Plavix while on heparin ggt and while platelets <baseline 90 (chronic thrombocytopenia). (4) Thrombocytopenia Status: Acute Plan: On admission, plt 71. Baseline 90s. Unclear etiology Take into account as above when using anticoagulation/antiplatelet agents, Daily CBCs (5) FELIBERTO (acute kidney injury) Status: Acute Plan: Baseline Cr 0.6. Cr 1.4 on admission. BUN/Cr 14. Fluid overloaded on admission with BNP 1000. Balance fluids for FELIBERTO with diuresing for fluid overload Hold ISRA-I Poor UOP 11/22 s/p Lasix 20mg x1. Added Lasix 20mg IV x1, consider additional agent Daily BMP (6) Pre-syncope Status: Acute Plan: "Jerking movements" likely pre-syncope secondary to hypotension and new RBBB. No LOC, bowel/bladder dysfunction, tongue biting, or hx seizures see plan for KS (7) HTN (hypertension) Status: Chronic Plan: Hold home lisinopril and HCTZ for hypotension (8) HLD (hyperlipidemia) Status: Chronic Plan: Cholestyramine 4mg BID Pravachol 20mg daily (9) Blind left eye Status: Chronic Plan: -PT to evaluate, stand right side of bed during interviewws (10) MDD (major depressive disorder) Status: Chronic Plan: continue celexa 5mg daily (11) BPH (benign prostatic hyperplasia) Status: Chronic Plan: continue Flomax 0.4mg daily (12) Diminished hearing Status: Chronic Plan: continue hearing aids (13) FEN Status: Acute Plan: Fluids: PO Electrolytes: Na 134, daily BMPs Nutrition: heart healthy diet GI ppx: not indicated DVT ppx: SCDs, heparin ggt (Susi Rivera MD R1) Problem Qualifiers (1) CAD (coronary artery disease): Qualified Code: I25.10 - Coronary artery disease involving [place] coronary artery of [place] heart without angina pectoris (2) HTN (hypertension): Qualified Code: I10 - Essential hypertension (3) HLD (hyperlipidemia): Qualified Code: E78.5 - Hyperlipidemia, unspecified hyperlipidemia type Susi Rivera MD R1 Nov 23, 2016 10:54 Trevor English MD Nov 23, 2016 20:54
--- NOTE | 2016-11-23 11:35 | PD.CARD.PN ---
Subjective Subjective Remarks Pt has no complaints. Objective Medications Administered Medications Medications (Trade) Dose Ordered Sig/Sree Route PRN Reason Start Time Stop Time Status Last Admin Dose Admin IV Flush (NS Flush) 2 ml BID FLUSH 11/22/16 21:00 11/23/16 09:23 Cholestyramine Resin (Questran 4 Gm Pkt) 4 gm BID PO 11/22/16 21:00 11/23/16 09:19 Citalopram Hydrobromide (CeleXA) 5 mg DAILY PO 11/23/16 09:00 11/23/16 09:21 Cyanocobalamin (Vitamin B12) 2,000 mcg DAILY PO 11/23/16 09:00 11/23/16 09:19 Tamsulosin HCl (Flomax) 0.4 mg DAILY PO 11/23/16 09:00 11/23/16 09:21 Pravastatin Sodium 20 mg 20 mg DAILY PO 11/23/16 09:00 11/23/16 09:00 Heparin Sodium/ Dextrose (Heparin-D5W Inj) 250 ml @ 0 mls/hr TITRATE IV 11/22/16 20:15 11/22/16 21:20 Vital Signs / I&O Vital Signs Date Time Temp Pulse Resp B/P Pulse Ox O2 Delivery O2 Flow Rate FiO2 11/23/16 11:21 139/96 11/23/16 11:18 130/88 11/23/16 11:00 98.1 83 22 125/94 95 11/23/16 07:00 97.5 67 18 105/59 96 11/23/16 05:00 81 11/23/16 04:00 88 11/23/16 03:00 86 11/23/16 03:00 97.6 86 118/81 95 11/23/16 02:00 78 11/23/16 01:00 79 11/23/16 00:00 84 11/22/16 23:54 97.5 93 125/83 97 11/22/16 23:00 93 11/22/16 22:00 87 11/22/16 21:00 82 11/22/16 20:00 93 11/22/16 19:00 98.8 81 112/76 98 11/22/16 19:00 81 11/22/16 18:00 81 11/22/16 17:00 98.5 91 18 125/89 97 11/22/16 17:00 91 11/22/16 14:00 97 20 114/83 98 Room Air 11/22/16 13:00 95 19 131/84 98 Room Air 11/22/16 12:30 90 20 124/83 97 Room Air I/O 11/22/16 11/22/16 11/22/16 11/23/16 11/23/16 11/23/16 07:00 15:00 23:00 07:00 15:00 23:00 Intake Total 240 ml 300 ml Output Total 400 ml Balance 240 ml -100 ml Intake Oral 240 ml 300 ml Output Urine Total 400 ml # Voids 2 Physical Exam GENERAL: This is a well-nourished, well-developed patient, in no apparent distress. CARDIOVASCULAR: Regular rate and rhythm without murmurs, gallops, or rubs. RESPIRATORY: Clear to auscultation. Breath sounds equal bilaterally. No wheezes , rales, or rhonchi. GASTROINTESTINAL: Abdomen soft, non-tender, nondistended. Normal active bowel sounds MUSCULOSKELETAL: Extremities without clubbing, cyanosis, or edema. NEURO: Alert & Oriented x4 to person, place, time, situation. Moves all ext x4 Laboratory Laboratory Tests Test 11/22/16 11/22/16 11/22/16 11/22/16 12:30 18:02 22:24 23:42 B-Type Natriuretic Peptide 1021 PG/ML Troponin I 16.10 NG/ML 18.20 NG/ML Activated Partial 67.6 SEC Thromboplast Time Test 11/23/16 03:11 White Blood Count 6.2 TH/MM3 Red Blood Count 3.84 MIL/MM3 Hemoglobin 13.1 GM/DL Hematocrit 38.4 % Mean Corpuscular Volume 100.0 FL Mean Corpuscular Hemoglobin 34.2 PG Mean Corpuscular Hemoglobin 34.2 % Concent Red Cell Distribution Width 13.3 % Platelet Count 75 TH/MM3 Mean Platelet Volume 12.1 FL Activated Partial 48.1 SEC Thromboplast Time Sodium Level 134 MEQ/L Potassium Level 3.9 MEQ/L Chloride Level 97 MEQ/L Carbon Dioxide Level 25.7 MEQ/L Anion Gap 11 MEQ/L Blood Urea Nitrogen 29 MG/DL Creatinine 1.55 MG/DL Estimat Glomerular Filtration 43 ML/MIN Rate Random Glucose 97 MG/DL Calcium Level 8.7 MG/DL Total Bilirubin 0.8 MG/DL Aspartate Amino Transf 91 U/L (AST/SGOT) Alanine Aminotransferase 29 U/L (ALT/SGPT) Alkaline Phosphatase 62 U/L Total Protein 6.5 GM/DL Albumin 3.3 GM/DL Imaging Last Impressions Head CT 11/22/16 0954 Signed Impressions: Service Date/Time: Tuesday, November 22, 2016 10:38 - CONCLUSION: Stable examination. No interval change Erik Shaikh MD Chest X-Ray 11/22/16 0000 Signed Impressions: Service Date/Time: Tuesday, November 22, 2016 11:06 - CONCLUSION: Some pulmonary vascular congestion with bilateral infiltrates right greater left. Cardiac silhouette is widened Erik Shaikh MD Assessment and Plan Problem List: (1) Elevated troponin I level Assessment and Plan: Quite high elevation w/o any symptoms of cp. His seizure like activity could have been dysrhythmia theoretically. Will likely need cath. On heparin ggt. On asa, will add bb. (2) Syncope Assessment and Plan: Unclear but given very high troponin, ischemic mediated arrhythmia more likely. Problem Qualifiers (1) Syncope: Qualified Code: R55 - Syncope, unspecified syncope type Jourdan Alva MD Nov 23, 2016 11:35
[2016-11-23] MEDS: SODIUM CHLOR 0.9% 1000 ML INJ 1,000 ML IV SCH ×2 (12:02→22:02)
[2016-11-23] MEDS: METOPROLOL TARTRATE 25 MG TAB PO SCH ×2 (12:09→21:25)
[2016-11-23] MEDS ORDERED: DIAZEPAM 10 MG TAB PO SCH (12:15)
[2016-11-23] MEDS ORDERED: ASPIRIN 325 MG TAB PO SCH (12:15)
[2016-11-23] MEDS ORDERED: diphenhydrAMINE HCL 50 MG CAP PO SCH (12:15)
[2016-11-23 12:51] LABS: APTT (PATIENT) 40.3 SEC (24.3-30.1)
--- NOTE | 2016-11-23 13:42 | EKG ---
Date Performed: 11/22/2016 Time Performed: 19:06:58 PTAGE: 85 years EKG: Sinus rhythm Rightward axis Right bundle branch block Inferior infarct - age undetermined Possible septal infarct - age undetermined Lateral ST-T changes may be due to myocardial ischemia Compared to prior tracing no significant change Abnormal ECG PREVIOUS TRACING : 11/22/2016 09.21 DOCTOR: Harman Del Rio Interpretating Date/Time 11/23/2016 13:40:39
--- NOTE | 2016-11-23 13:42 | EKG ---
Date Performed: 11/23/2016 Time Performed: 00:58:24 PTAGE: 85 years EKG: Sinus rhythm Right bundle branch block Inferior infarct - age undetermined Possible septal infarct - age undeterm ined Lateral ST-T changes may be due to myocardial ischemia Compared to prior tracing no significant change Abnormal ECG PREVIOUS TRACING 11/22/2016 @19.06.58 DOCTOR: Harman Del Rio Interpretating Date/Time 11/23/2016 13:44:35
--- NOTE | 2016-11-23 16:05 | MB ---
cc: MILAN BERNSTEIN M.D. DATE OF CONSULTATION: 11/23/2016. REASON FOR CONSULTATION: Interventional cardiology consultation for cardiac catheterization. HISTORY OF PRESENT ILLNESS: The patient is an 85-year-old white male with a history of coronary artery disease, sleep apnea, hypertension, hyperlipidemia who presented to the emergency department yesterday with complaints of nausea, vomiting, generalized weakness and lightheadedness. The patient states he simply felt "wobbly" all over but cannot recall ever losing consciousness. Cardiac enzymes were checked here in hospital and found to be markedly abnormal. He adamantly denies any recent chest pain, shortness of breath, palpitations. He also denies paroxysmal nocturnal dyspnea, change in chronic mild pedal edema, fevers, pleurisy. Since coming into the hospital, he states he feels "much better". PAST MEDICAL HISTORY: 1. Sleep apnea 2. Coronary artery disease status post apical myocardial infarction with subsequent bare metal Vision stent of the left anterior descending in 2007. 3. Hyperlipidemia. 4. Hypertension 5. Benign prostatic hypertrophy. CARDIAC MEDICATIONS AT HOME: 1. Aspirin 81 milligrams daily. 2. Simvastatin 10 milligrams at bedtime. 3. Clopidogrel 75 milligrams daily. 4. Lisinopril / HCT (20 / 12.5) one daily. Here in the hospital, he also has been placed on metoprolol 25 milligrams p.o. q. 12 hours as well as heparin drip. ALLERGIES: VIOXX. FAMILY HISTORY: Noncontributory. SOCIAL HISTORY: The patient quit smoking in 1968. He denies alcohol abuse. REVIEW OF SYSTEMS: Review of systems as in the history of present illness otherwise negative or noncontributory. He also denies headache, visual changes, unilateral weakness or numbness, abdominal pain, melena, dyspepsia, bright red blood per rectum. PHYSICAL EXAMINATION: VITAL SIGNS: On physical examination, his blood pressure is 139/96 with a pulse of 83, respirations 20. GENERAL: In general, he is a well-developed, well-nourished white male in no acute distress. HEAD, EYES, EARS, NOSE, THROAT: On HEENT examination, jugular venous pressure is normal. Carotid pulses are 2+ bilaterally and without bruits. CHEST: Examination of the chest reveals clear lung mcintosh. CARDIAC: On cardiac examination, he has a regular rhythm and rate without S3, S4 or murmur. ABDOMEN: On abdominal examination, he has a soft, nontender abdomen. Bowel sounds are present. There is no definite hepatosplenomegaly. EXTREMITIES: Examination of extremities reveals no clubbing, cyanosis or edema. Peripheral pulses are normal throughout. LABORATORY DATA: Laboratory data includes troponin 18.20. BUN 29, creatinine 1.55, potassium 3.9. INR 1.2. WBC 6.2, hemoglobin 13.1, platelets 75. EKGS: EKG shows sinus rhythm, right bundle-branch block, possible septal infarct age undetermined, possible inferior infarct age undetermined, nonspecific lateral S-T and T-wave adenopathies. IMPRESSION: [id number] myocardial infarction in this 85-year-old white male with a history of coronary artery disease status post stent of the left anterior descending eight years ago, sleep apnea, hypertension, hyperlipidemia, chronic thrombocytopenia. I have been asked to see the patient for possible cardiac catheterization. His cardiac enzymes are clearly consistent with myocardial infarction though he has had no definite angina-like symptoms recently. Echocardiogram is pending. In light of his abnormal cardiac enzymes, I would overall agree with the need for cardiac catheterization. The nature of this procedure and potential risks have been outlined to the patient and he agrees to proceed. RECOMMENDATIONS: 1. Cardiac catheterization tomorrow. 2. Will recheck his CBC in the morning. As long as his platelet count is above 60,000, will proceed with cardiac catheterization. MD ZIYAD Foote/EDWIN /11:59 AM /3:55 PM MTDAntoinette
[2016-11-23] MEDS ORDERED: NITROGLYCERIN 0.4 MG SL 25 TABS/BTL SL ONE ×2 (16:44→17:15)
--- NOTE | 2016-11-23 16:44 | EC ---
Study Study Date:11/23/2016 STUDY CONCLUSIONS SUMMARY - Procedure narrative: Transthoracic echocardiography. Image quality was suboptimal. The study was technically limited. Scanning was performed from the parasternal, apical, and subcostal acoustic windows. - Left ventricle: The cavity size was normal. Wall thickness was normal. Systolic function was severely reduced. The estimated ejection fraction was in the range of 20% to 25%. Diffuse hypokinesis. - Tricuspid valve: Moderate regurgitation. If LV function is below 40, please consider prescribing an ACEI or ARB or document rationale for non-use. PROCEDURE DATA STUDY STATUS: Elective. Procedure: Transthoracic echocardiography. Image quality was suboptimal. The study was technically limited. Scanning was performed from the parasternal, apical, and subcostal acoustic windows. Study completion: The patient tolerated the procedure well. Transthoracic echocardiography. M-mode, complete 2D, complete spectral Doppler, and color Doppler. Patient status: Inpatient. CARDIAC ANATOMY LEFT VENTRICLE: The cavity size was normal. Wall thickness was normal. Systolic function was severely reduced. The estimated ejection fraction was in the range of 20% to 25%. Diffuse hypokinesis. Images were inadequate for LV wall motion assessment. AORTIC VALVE: Trileaflet; mildly thickened, mildly calcified leaflets. Doppler: Transvalvular velocity was within the normal range. There was no stenosis. No regurgitation. AORTA: Aortic root: The aortic root was normal in size. MITRAL VALVE: Mildly thickened leaflets, . Doppler: Transvalvular velocity was within the normal range. There was no evidence for stenosis. No regurgitation. LEFT ATRIUM: The atrium was normal in size. RIGHT VENTRICLE: The cavity size was normal. Wall thickness was normal. PULMONIC VALVE: Doppler: Transvalvular velocity was within the normal range. There was no evidence for stenosis. No regurgitation. TRICUSPID VALVE: Structurally normal valve. Doppler: Transvalvular velocity was within the normal range. Moderate regurgitation. PULMONARY ARTERY: The main pulmonary artery was normal-sized. Systolic pressure was within the normal range. RIGHT ATRIUM: The atrium was normal in size. PERICARDIUM: There was no pericardial effusion. SYSTEMIC VEINS: Inferior vena cava: The vessel was normal in size. Prepared and signed by Jourdan Alva [id number]
[2016-11-23] MEDS ORDERED: NITROGLYCERIN-DEXTROSE INJ 250 ML ONE (16:50)
--- NOTE | 2016-11-23 17:13 | PD.CARD.PN ---
Subjective Subjective Remarks Called to see pt for acute cp, nitro ggt was started and pain resolved by the time I saw patient; he says he is feeling MUCH better. He also says this episode reminded him he was having this sx during the near syncopal event though he had denied any cp during the prior interviews. Objective Medications Administered Medications Medications (Trade) Dose Ordered Sig/Sree Route PRN Reason Start Time Stop Time Status Last Admin Dose Admin IV Flush (NS Flush) 2 ml BID FLUSH 11/22/16 21:00 11/23/16 09:23 Cholestyramine Resin (Questran 4 Gm Pkt) 4 gm BID PO 11/22/16 21:00 11/23/16 09:19 Citalopram Hydrobromide (CeleXA) 5 mg DAILY PO 11/23/16 09:00 11/23/16 09:21 Cyanocobalamin (Vitamin B12) 2,000 mcg DAILY PO 11/23/16 09:00 11/23/16 09:19 Tamsulosin HCl (Flomax) 0.4 mg DAILY PO 11/23/16 09:00 11/23/16 09:21 Pravastatin Sodium 20 mg 20 mg DAILY PO 11/23/16 09:00 11/23/16 09:00 Heparin Sodium/ Dextrose (Heparin-D5W Inj) 250 ml @ 0 mls/hr TITRATE IV 11/22/16 20:15 11/22/16 21:20 Metoprolol Tartrate (Lopressor) 25 mg Q12HR PO 11/23/16 11:30 11/23/16 12:09 Administered Medications Medications (Trade) Dose Ordered Sig/Sere Route PRN Reason Start Time Stop Time Status Last Admin Dose Admin IV Flush (NS Flush) 2 ml BID FLUSH 11/22/16 21:00 11/23/16 09:23 Cholestyramine Resin (Questran 4 Gm Pkt) 4 gm BID PO 11/22/16 21:00 11/23/16 09:19 Citalopram Hydrobromide (CeleXA) 5 mg DAILY PO 11/23/16 09:00 11/23/16 09:21 Cyanocobalamin (Vitamin B12) 2,000 mcg DAILY PO 11/23/16 09:00 11/23/16 09:19 Tamsulosin HCl (Flomax) 0.4 mg DAILY PO 11/23/16 09:00 11/23/16 09:21 Pravastatin Sodium 20 mg 20 mg DAILY PO 11/23/16 09:00 11/23/16 09:00 Heparin Sodium/ Dextrose (Heparin-D5W Inj) 250 ml @ 0 mls/hr TITRATE IV 11/22/16 20:15 11/22/16 21:20 Metoprolol Tartrate (Lopressor) 25 mg Q12HR PO 11/23/16 11:30 11/23/16 12:09 Vital Signs / I&O Vital Signs Date Time Temp Pulse Resp B/P Pulse Ox O2 Delivery O2 Flow Rate FiO2 11/23/16 15:00 97.4 69 22 113/79 98 11/23/16 14:00 77 11/23/16 13:00 87 11/23/16 12:00 110 11/23/16 11:45 97 11/23/16 11:21 139/96 11/23/16 11:18 130/88 11/23/16 11:00 98.1 83 22 125/94 95 11/23/16 11:00 81 11/23/16 10:00 88 11/23/16 09:00 88 11/23/16 08:00 87 11/23/16 07:00 97.5 67 18 105/59 96 11/23/16 07:00 82 11/23/16 05:00 81 11/23/16 04:00 88 11/23/16 03:00 86 11/23/16 03:00 97.6 86 118/81 95 11/23/16 02:00 78 11/23/16 01:00 79 11/23/16 00:00 84 11/22/16 23:54 97.5 93 125/83 97 11/22/16 23:00 93 11/22/16 22:00 87 11/22/16 21:00 82 11/22/16 20:00 93 11/22/16 19:00 98.8 81 112/76 98 11/22/16 19:00 81 11/22/16 18:00 81 I/O 11/22/16 11/22/16 11/22/16 11/23/16 11/23/16 11/23/16 07:00 15:00 23:00 07:00 15:00 23:00 Intake Total 240 ml 300 ml Output Total 400 ml Balance 240 ml -100 ml Intake Oral 240 ml 300 ml Output Urine Total 400 ml # Voids 2 Physical Exam GENERAL: This is a well-nourished, well-developed patient, in no apparent distress. CARDIOVASCULAR: Regular rate and rhythm without murmurs, gallops, or rubs. RESPIRATORY: Clear to auscultation. Breath sounds equal bilaterally. No wheezes , rales, or rhonchi. GASTROINTESTINAL: Abdomen soft, non-tender, nondistended. Normal active bowel sounds MUSCULOSKELETAL: Extremities without clubbing, cyanosis, or edema. NEURO: Alert & Oriented x4 to person, place, time, situation. Moves all ext x4 Laboratory Laboratory Tests Test 11/22/16 11/22/16 11/22/16 11/23/16 18:02 22:24 23:42 03:11 Troponin I 16.10 NG/ML 18.20 NG/ML Activated Partial 67.6 SEC 48.1 SEC Thromboplast Time White Blood Count 6.2 TH/MM3 Red Blood Count 3.84 MIL/MM3 Hemoglobin 13.1 GM/DL Hematocrit 38.4 % Mean Corpuscular Volume 100.0 FL Mean Corpuscular Hemoglobin 34.2 PG Mean Corpuscular Hemoglobin 34.2 % Concent Red Cell Distribution Width 13.3 % Platelet Count 75 TH/MM3 Mean Platelet Volume 12.1 FL Sodium Level 134 MEQ/L Potassium Level 3.9 MEQ/L Chloride Level 97 MEQ/L Carbon Dioxide Level 25.7 MEQ/L Anion Gap 11 MEQ/L Blood Urea Nitrogen 29 MG/DL Creatinine 1.55 MG/DL Estimat Glomerular Filtration 43 ML/MIN Rate Random Glucose 97 MG/DL Calcium Level 8.7 MG/DL Total Bilirubin 0.8 MG/DL Aspartate Amino Transf 91 U/L (AST/SGOT) Alanine Aminotransferase 29 U/L (ALT/SGPT) Alkaline Phosphatase 62 U/L Total Protein 6.5 GM/DL Albumin 3.3 GM/DL Test 11/23/16 12:13 Activated Partial 40.3 SEC Thromboplast Time Imaging Last Impressions Carotid Artery Ultrasound 11/23/16 0000 Signed Impressions: Service Date/Time: Wednesday, November 23, 2016 07:26 - CONCLUSION: Numerous prominent eccentric calcifications consistent with atherosclerotic disease but no two-dimensional stenosis is seen. Erik Shaikh MD Head CT 11/22/16 0954 Signed Impressions: Service Date/Time: Tuesday, November 22, 2016 10:38 - CONCLUSION: Stable examination. No interval change Erik Shaikh MD Chest X-Ray 11/22/16 0000 Signed Impressions: Service Date/Time: Tuesday, November 22, 2016 11:06 - CONCLUSION: Some pulmonary vascular congestion with bilateral infiltrates right greater left. Cardiac silhouette is widened Erik Shaikh MD Assessment and Plan Problem List: (1) Elevated troponin I level Assessment and Plan: Quite high elevation, cath tomorrow by Damien; added aggrastat, on asa/hep/bb/statin (2) Syncope Problem Qualifiers (1) Syncope: Qualified Code: R55 - Syncope, unspecified syncope type Jourdan Alva MD Nov 23, 2016 17:13
[2016-11-23] MEDS ORDERED: TIROFIBAN BOLUS IV ONE (17:15)
[2016-11-23] MEDS ORDERED: NITROGLYCERIN/DEXTROSE 5% 250 ML for chest pain IV SCH (17:15)
[2016-11-23] MEDS ORDERED: TIROFIBAN INFUSION INJ 250 ML IV SCH (18:00)
[2016-11-23 21:09] LABS: AUTOMATED NEUTROPHIL # 5.6 TH/MM3 (1.8-7.7); BASOPHIL % 0.5 % (0.0-2.0); EOSINOPHIL % 0.3 % (0.0-4.0); HEMATOCRIT 39.6 % (39.0-51.0); LYMPH % 11.2 % (9.0-44.0); LYMPHOCYTE # 0.8 TH/MM3 (1.0-4.8); MEAN CELL VOLUME 100.1 FL (80.0-100.0); MEAN CORPUSCULAR HEMOGLOBIN 34.2 PG (27.0-34.0); MEAN CORPUSCULAR HGB CONC 34.2 % (32.0-36.0); MONO % 8.8 % (0.0-8.0); NEUT % 79.2 % (16.0-70.0); PLATELET COUNT 85 TH/MM3 (150-450); RED BLOOD COUNT 3.96 MIL/MM3 (4.50-5.90); RED CELL DISTRIBUTION WIDTH 13.5 % (11.6-17.2)
[2016-11-23 21:11] LABS: HEMO FLAGS DIFF FINAL
[2016-11-24] VITALS (24 sets, daily range): BP systolic 110–131; BP diastolic 56–90; PULSE 60–87; RESP 16–20; TEMP 97.2–97.6; O2SAT 93–99
[2016-11-24 05:50] LABS: AUTOMATED NEUTROPHIL # 4.1 TH/MM3 (1.8-7.7); BASOPHIL % 0.7 % (0.0-2.0); EOSINOPHIL # 0.1 TH/MM3 (0-0.4); EOSINOPHIL % 1.7 % (0.0-4.0); HEMATOCRIT 40.8 % (39.0-51.0); LYMPH % 27.6 % (9.0-44.0); LYMPHOCYTE # 1.9 TH/MM3 (1.0-4.8); MEAN CELL VOLUME 100.7 FL (80.0-100.0); MEAN CORPUSCULAR HEMOGLOBIN 33.9 PG (27.0-34.0); MEAN CORPUSCULAR HGB CONC 33.7 % (32.0-36.0); MONO % 11.1 % (0.0-8.0); NEUT % 58.9 % (16.0-70.0); PLATELET COUNT 82 TH/MM3 (150-450); RED BLOOD COUNT 4.05 MIL/MM3 (4.50-5.90); RED CELL DISTRIBUTION WIDTH 13.2 % (11.6-17.2)
[2016-11-24 05:54] LABS: HEMO FLAGS AUTO DIFF
[2016-11-24 06:01] LABS: APTT (PATIENT) 43.7 SEC (24.3-30.1)
--- NOTE | 2016-11-24 07:40 | HHI.FPPN ---
Subjective Remarks No acute issues overnight. Vitals are stable, patient remains afebrile. He is scheduled for a cardiac catheterization this morning. He denies any chest pain , shortness of breath, fever, chills, nausea vomiting. He is tolerating by mouth. Objective Vitals Vital Signs Date Time Temp Pulse Resp B/P Pulse Ox O2 Delivery O2 Flow Rate FiO2 11/24/16 06:00 76 11/24/16 05:00 87 11/24/16 04:00 77 11/24/16 03:00 97.6 82 18 110/74 97 11/24/16 03:00 82 11/24/16 02:00 76 11/24/16 00:00 67 11/23/16 23:00 84 11/23/16 23:00 72 18 114/68 97 11/23/16 22:00 90 18 119/81 95 11/23/16 21:00 73 18 128/94 98 11/23/16 20:00 82 18 109/84 94 11/23/16 20:00 67 11/23/16 19:00 72 11/23/16 19:00 97.6 72 18 116/87 99 11/23/16 18:00 63 11/23/16 17:12 98 Nasal Cannula 2.00 11/23/16 17:00 65 11/23/16 16:00 76 11/23/16 15:00 100 11/23/16 15:00 97.4 69 22 113/79 98 11/23/16 14:00 77 11/23/16 13:00 87 11/23/16 12:00 110 11/23/16 11:45 97 11/23/16 11:21 139/96 11/23/16 11:18 130/88 11/23/16 11:00 98.1 83 22 125/94 95 11/23/16 11:00 81 11/23/16 10:00 88 11/23/16 09:00 88 11/23/16 08:00 87 I/O 11/23/16 11/23/16 11/23/16 11/24/16 11/24/16 11/24/16 07:00 15:00 23:00 07:00 15:00 23:00 Intake Total 300 ml 1200 ml 620 ml Output Total 400 ml 550 ml 375 ml Balance -100 ml 650 ml 245 ml Intake Oral 300 ml 1200 ml 200 ml IV Total 420 ml Output Urine Total 400 ml 550 ml 375 ml # Voids 2 4 # Bowel Movements 1 Result Diagram: 11/24/16 0513 11/24/16 0513 Imaging Last Impressions Carotid Artery Ultrasound 11/23/16 0000 Signed Impressions: Service Date/Time: Wednesday, November 23, 2016 07:26 - CONCLUSION: Numerous prominent eccentric calcifications consistent with atherosclerotic disease but no two-dimensional stenosis is seen. Erik Shaikh MD Head CT 11/22/16 0954 Signed Impressions: Service Date/Time: Tuesday, November 22, 2016 10:38 - CONCLUSION: Stable examination. No interval change Erik Shaikh MD Chest X-Ray 11/22/16 0000 Signed Impressions: Service Date/Time: Tuesday, November 22, 2016 11:06 - CONCLUSION: Some pulmonary vascular congestion with bilateral infiltrates right greater left. Cardiac silhouette is widened Erik Shaikh MD Objective Remarks CONST: Adult male, lying in bed comfortably in NAD DERM: multiple ecchymoses of LE. 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 HEENT: Wearing glasses with L eyepiece blackened. R pupil reactive to light, L pupil non-reactive. CV: RRR. No murmurs RESP: Lungs CTAB, no wheezes rales or rhonchi. GI: Soft, NTND MSK: Trace edema NEURO: Grossly motor and sensory function intact PSYCH: Appropriate affect. Good humor- likes to tell puns. A/P Assessment and Plan 85 yo male presented to the ED w/N/V/ presyncope and was found to have elevated troponin new onset RBBB. Discharge Planning 1-2 days, pending Cardiology recommendations dw Dr. English Problem List: (1) NH (myocardial infarction) Status: Acute Plan: EKG on admission with new RBBB and hypotension. No ST elevations. Denying CP or palpitations. Trops 1.8 ->16 ->18. BNP 1000. Cardiology consulted U/S Carotids (11/22/15): Eccentric calcifications suggestive of atherosclerotic disease, no 2D stenosis 11/23 Echo severely reduced systolic function, EF 2025%, diffuse hypokinesis Plan Hold home lisinopril and HCTZ while hypotensive. Continue telemetry, O2 supplementation PRN for sats 92%+ Cardiology consultedplans for cardiac catheterization today Heparin and Tirofiban drips PT Orthostatic vitals pending (2) Right bundle branch block (RBBB) Status: Acute Plan: EKG: new RBBB on admission. See plan NH (3) CAD (coronary artery disease) Status: Chronic Plan: Hx CAD s/p stent (2007) Hold home aspirin and Plavix while on heparin ggt and while platelets <baseline 90 (chronic thrombocytopenia). (4) Thrombocytopenia Status: Acute Plan: On admission, plt 71. Baseline 90s. Unclear etiology Stable. Take into account as above when using anticoagulation/antiplatelet agents, Daily CBCs (5) FELIBERTO (acute kidney injury) Status: Acute Plan: Baseline Cr 0.6. Cr 1.4 on admission. BUN/Cr 14. Fluid overloaded on admission with BNP 1000. Creatinine 1.54 today Urine output 895ml in the past 24 hours. Balance fluids for FELIBERTO with diuresing for fluid overload Hold ISRA-I NS @ 100ml/hr (6) HTN (hypertension) Status: Chronic Plan: Hold home lisinopril and HCTZ for hypotension (7) HLD (hyperlipidemia) Status: Chronic Plan: Cholestyramine 4mg BID Pravachol 20mg daily (8) MDD (major depressive disorder) Status: Chronic Plan: continue celexa 5mg daily (9) BPH (benign prostatic hyperplasia) Status: Chronic Plan: continue Flomax 0.4mg daily (10) FEN Status: Acute Plan: Fluids: NS @ 100ml/hr Electrolytes: Mild hyponatremia at 132, continue to monitor and replete as needed Nutrition: heart healthy diet GI ppx: not indicated DVT ppx: SCDs, heparin ggt Problem Qualifiers (1) NH (myocardial infarction): Qualified Code: I21.4 - Non-ST elevation (NSTEMI) myocardial infarction (2) CAD (coronary artery disease): Qualified Code: I25.10 - Coronary artery disease involving rampart coronary artery of rampart heart without angina pectoris (3) HTN (hypertension): Qualified Code: I10 - Essential hypertension (4) HLD (hyperlipidemia): Qualified Code: E78.5 - Hyperlipidemia, unspecified hyperlipidemia type (5) MDD (major depressive disorder): Qualified Code: F33.1 - Moderate episode of recurrent major depressive disorder (6) BPH (benign prostatic hyperplasia): Qualified Code: N40.0 - Benign prostatic hyperplasia, presence of lower urinary tract symptoms unspecified, unspecified morphology Edna Yee MD R2 Nov 24, 2016 07:40
[2016-11-24 07:43] LABS: PLATELET ESTIMATE SMEAR LOW (NORMAL); PLATELET MORPHOLOGY NORMAL (NORMAL); SCAN/DIFF AUTO DIFF CONFIRMED
[2016-11-24 07:44] LABS: ACANTHOCYTES 2+ (NORMAL); KERATOCYTES OCC (NORMAL); OVALOCYTES 1+ (NORMAL)
[2016-11-24] MEDS: CHOLESTYRAMINE 4 GM PACKET PO SCH ×2 (09:00→22:37)
[2016-11-24] MEDS: SODIUM CHLORIDE 0.9% FLUSH 5 ML FLUSH FLUSH SCH ×2 (09:11→22:37)
[2016-11-24] MEDS: ASPIRIN EC 81 MG TABEC PO SCH (09:11)
[2016-11-24] MEDS: SODIUM CHLOR 0.9% 1000 ML INJ 1,000 ML IV SCH (09:11)
[2016-11-24] MEDS: CYANOCOBALAMIN 1,000 MCG TAB PO SCH (09:12)
[2016-11-24] MEDS: PRAVASTATIN SOD 20 MG TAB PO SCH (09:13)
[2016-11-24] MEDS: CLOPIDOGREL 75 MG TAB PO SCH (09:15)
[2016-11-24] MEDS: CITALOPRAM HYDROBROMIDE 20 MG TAB PO SCH (09:15)
[2016-11-24] MEDS: METOPROLOL TARTRATE 25 MG TAB PO SCH ×2 (09:15→22:34)
[2016-11-24] MEDS: TAMSULOSIN HCL 0.4 MG CAP PO SCH (09:28)
[2016-11-24] MEDS ORDERED: PNEUMOCOCCAL POLYVALENT INJ 25 MCG/0.5 ML SYR IM ONE (10:00)
--- NOTE | 2016-11-24 10:25 | PD.CARD.PN ---
Subjective Subjective Remarks Pt still feels well, no further cp Objective Medications Administered Medications Medications (Trade) Dose Ordered Sig/Sree Route PRN Reason Start Time Stop Time Status Last Admin Dose Admin IV Flush (NS Flush) 2 ml BID FLUSH 11/22/16 21:00 11/24/16 09:11 Aspirin (Ecotrin Ec) 81 mg DAILY PO 11/23/16 09:00 11/24/16 09:11 Cholestyramine Resin (Questran 4 Gm Pkt) 4 gm BID PO 11/22/16 21:00 11/23/16 21:25 Citalopram Hydrobromide (CeleXA) 5 mg DAILY PO 11/23/16 09:00 11/24/16 09:15 Clopidogrel Bisulfate (Plavix) 75 mg DAILY PO 11/23/16 09:00 11/24/16 09:15 Cyanocobalamin (Vitamin B12) 2,000 mcg DAILY PO 11/23/16 09:00 11/24/16 09:12 Tamsulosin HCl (Flomax) 0.4 mg DAILY PO 11/23/16 09:00 11/24/16 09:28 Pravastatin Sodium 20 mg 20 mg DAILY PO 11/23/16 09:00 11/24/16 09:13 Heparin Sodium/ Dextrose (Heparin-D5W Inj) 250 ml @ 0 mls/hr TITRATE IV 11/22/16 20:15 11/22/16 21:20 Metoprolol Tartrate 25 mg 25 mg Q12HR PO 11/23/16 11:30 11/24/16 09:15 Sodium Chloride 1,000 ml @ 100 mls/hr Q10H IV 11/23/16 12:02 11/28/16 12:01 11/24/16 09:11 Tirofiban/Sodium Chloride (Aggrastat Infusion Inj) 250 ml @ 15.3 mls/hr [id number] IV 11/23/16 18:00 11/23/16 18:22 Vital Signs / I&O Vital Signs Date Time Temp Pulse Resp B/P Pulse Ox O2 Delivery O2 Flow Rate FiO2 11/24/16 10:19 97 Nasal Cannula 2.00 11/24/16 06:00 76 11/24/16 05:00 87 11/24/16 04:00 77 11/24/16 03:00 97.6 82 18 110/74 97 11/24/16 03:00 82 11/24/16 02:00 76 11/24/16 00:00 67 11/23/16 23:00 84 11/23/16 23:00 72 18 114/68 97 11/23/16 22:00 90 18 119/81 95 11/23/16 21:00 73 18 128/94 98 11/23/16 20:00 82 18 109/84 94 11/23/16 20:00 67 11/23/16 19:00 72 11/23/16 19:00 97.6 72 18 116/87 99 11/23/16 18:00 63 11/23/16 17:12 98 Nasal Cannula 2.00 11/23/16 17:00 65 11/23/16 16:00 76 11/23/16 15:00 100 11/23/16 15:00 97.4 69 22 113/79 98 11/23/16 14:00 77 11/23/16 13:00 87 11/23/16 12:00 110 11/23/16 11:45 97 11/23/16 11:21 139/96 11/23/16 11:18 130/88 11/23/16 11:00 98.1 83 22 125/94 95 11/23/16 11:00 81 I/O 11/23/16 11/23/16 11/23/16 11/24/16 11/24/16 11/24/16 07:00 15:00 23:00 07:00 15:00 23:00 Intake Total 300 ml 1200 ml 620 ml Output Total 400 ml 550 ml 375 ml Balance -100 ml 650 ml 245 ml Intake Oral 300 ml 1200 ml 200 ml IV Total 420 ml Output Urine Total 400 ml 550 ml 375 ml # Voids 2 4 # Bowel Movements 1 Physical Exam GENERAL: This is a well-nourished, well-developed patient, in no apparent distress. CARDIOVASCULAR: Regular rate and rhythm without murmurs, gallops, or rubs. RESPIRATORY: Clear to auscultation. Breath sounds equal bilaterally. No wheezes , rales, or rhonchi. GASTROINTESTINAL: Abdomen soft, non-tender, nondistended. Normal active bowel sounds MUSCULOSKELETAL: Extremities without clubbing, cyanosis, or edema. NEURO: Alert & Oriented x4 to person, place, time, situation. Moves all ext x4 Laboratory Laboratory Tests Test 11/23/16 11/23/16 11/24/16 12:13 20:54 05:13 Activated Partial 40.3 SEC 43.7 SEC Thromboplast Time White Blood Count 7.0 TH/MM3 7.0 TH/MM3 Red Blood Count 3.96 MIL/MM3 4.05 MIL/MM3 Hemoglobin 13.6 GM/DL 13.8 GM/DL Hematocrit 39.6 % 40.8 % Mean Corpuscular Volume 100.1 FL 100.7 FL Mean Corpuscular Hemoglobin 34.2 PG 33.9 PG Mean Corpuscular Hemoglobin 34.2 % 33.7 % Concent Red Cell Distribution Width 13.5 % 13.2 % Platelet Count 85 TH/MM3 82 TH/MM3 Mean Platelet Volume 12.1 FL 11.8 FL Neutrophils (%) (Auto) 79.2 % 58.9 % Lymphocytes (%) (Auto) 11.2 % 27.6 % Monocytes (%) (Auto) 8.8 % 11.1 % Eosinophils (%) (Auto) 0.3 % 1.7 % Basophils (%) (Auto) 0.5 % 0.7 % Neutrophils # (Auto) 5.6 TH/MM3 4.1 TH/MM3 Lymphocytes # (Auto) 0.8 TH/MM3 1.9 TH/MM3 Monocytes # (Auto) 0.6 TH/MM3 0.8 TH/MM3 Eosinophils # (Auto) 0.0 TH/MM3 0.1 TH/MM3 Basophils # (Auto) 0.0 TH/MM3 0.0 TH/MM3 CBC Comment DIFF FINAL AUTO DIFF Differential Comment AUTO DIFF CONFIRMED Platelet Estimate LOW Platelet Morphology Comment NORMAL Ovalocytes 1+ Acanthocytes 2+ Keratocytes OCC Sodium Level 132 MEQ/L Potassium Level 4.0 MEQ/L Chloride Level 95 MEQ/L Carbon Dioxide Level 27.0 MEQ/L Anion Gap 10 MEQ/L Blood Urea Nitrogen 36 MG/DL Creatinine 1.54 MG/DL Estimat Glomerular Filtration 43 ML/MIN Rate Random Glucose 95 MG/DL Calcium Level 8.8 MG/DL B-Type Natriuretic Peptide 1620 PG/ML Imaging Last Impressions Carotid Artery Ultrasound 11/23/16 0000 Signed Impressions: Service Date/Time: Wednesday, November 23, 2016 07:26 - CONCLUSION: Numerous prominent eccentric calcifications consistent with atherosclerotic disease but no two-dimensional stenosis is seen. Erik Shaikh MD Head CT 11/22/16 0954 Signed Impressions: Service Date/Time: Tuesday, November 22, 2016 10:38 - CONCLUSION: Stable examination. No interval change Erik Shaikh MD Chest X-Ray 11/22/16 0000 Signed Impressions: Service Date/Time: Tuesday, November 22, 2016 11:06 - CONCLUSION: Some pulmonary vascular congestion with bilateral infiltrates right greater left. Cardiac silhouette is widened Erik Shaikh MD Assessment and Plan Problem List: (1) Elevated troponin I level Assessment and Plan: Quite high elevation, cath today by Damien; added aggrastat , on asa/hep/bb/statin (2) Syncope Assessment and Plan: possible ischemic mediated arrhythmia (3) NSTEMI (non-ST elevated myocardial infarction) Assessment and Plan continue med therapy for now, cath today Problem Qualifiers (1) Syncope: Qualified Code: R55 - Syncope, unspecified syncope type Jourdan Alva MD Nov 24, 2016 10:25
[2016-11-24] MEDS ORDERED: MIDAZOLAM HCL 2 MG/2 ML VIAL ONE (13:25)
[2016-11-24] MEDS ORDERED: VERAPAMIL HCL 5 MG/2 ML VIAL ONE (13:25)
[2016-11-24] MEDS ORDERED: HEPARIN SODIUM - IV 10,000 UNITS/10 ML VIAL ONE (13:26)
[2016-11-24] MEDS ORDERED: NITROGLYCERIN INJ 5 ML ONE (13:26)
[2016-11-24] MEDS ORDERED: HEPARIN-NS/PF INJ 500 ML ONE (13:26)
[2016-11-24] MEDS ORDERED: IOHEXOL 350 MG/ML 100 ML BTL (for Cath Lab) OTHER ONE (14:30)
[2016-11-24] MEDS ORDERED: SODIUM CHLOR 0.9% 1000 ML INJ 1,000 ML IV SCH (14:34)
[2016-11-24] MEDS ORDERED: MISC INFORMATION XX ONE (14:45)
[2016-11-24] MEDS ORDERED: SODIUM CHLOR 0.9% 250 ML INJ 250 ML IV PRN (14:45)
[2016-11-24] MEDS: MORPHINE SULFATE 4 MG/ML INJ IV PRN (19:00)
--- NOTE | 2016-11-24 19:36 | EKG ---
Date Performed: 11/23/2016 Time Performed: 16:46:18 PTAGE: 85 years EKG: Sinus bradycardia Lead(s) unsuitable for analysis: V5 Rightward axis Right bundle branch bl ock Possible inferior infarct - age undetermined Lateral ST-T changes may be due to myocardial ischem ia Abnormal ECG PREVIOUS TRACING : 11/23/2016 00.58 DOCTOR: Joaquin Francis Interpretating Date/Time 11/24/2016 19:32:56
[2016-11-25] VITALS: PULSE 61
[2016-11-25 01:09] VITALS: PULSE 59
[2016-11-25 02:00] VITALS: BP 92/51; PULSE 70; RESP 33; O2SAT 96
--- NOTE | 2016-11-25 02:22 | HHI.PR ---
Addendum to Inpatient Note Addendum Reason: Additional Documentation Additional Information S: Medical team paged at approximately 0200 for CODE BLUE. Patient is a 85-year- old male s/p heart catheterization that showed critical stenosis of multiple vessels. CABG was recommended, however patient and his family opted for medical treatment. Upon arrival of the medical team, Dr. Dimas, estimator printing plate making, at bedside who agreed with transfer of the patient to the ICU for further evaluation. O: GENERAL: 85 y/o M lying in bed SKIN: Warm and dry. CARDIOVASCULAR: Bradycardic to 52 s/p atropine. RESPIRATORY: CTAB without CRW. GASTROINTESTINAL: Abdomen soft, non-tender, nondistended with +BS. MUSCULOSKELETAL: No cyanosis or edema. NEURO/PSYCH: AAOx3. A: Mr. Chan is a 85 y/o M s/p catheterization with critical stenosis of multiple coronary arteries currently presenting with bradycardia P: 1. Bradycardia Atropine given in SICU, rate improved to 52 bpm EKG: Sinus bradycardia with old RBBB per Medical team's EKG read Dr. Dimas, estimator printing plate making, consulted for further management Patient's , Mrs. Karol Chan, was notified of the patient's worsening condition After discussion with patient and patient's , patient will be listed as a DNR/DNI at this time SDW: Dr. Wayne Sousa WDW: Dr. English, Dr. Yee, Dr. Rivera Update at 0430: Medical team notified that patient has at 0409. Von Lewis MD R1 Nov 25, 2016 02:22
[2016-11-25 02:24] LABS: BLOOD GAS VENOUS BASE EXCESS -4.6 mmol/L (-2-2); BLOOD GAS VENOUS HCO3 21 mmol/L (22-26); BLOOD GAS VENOUS O2 CONTENT 4.2 Vol % (9.0-17.0); BLOOD GAS VENOUS O2 HGB SAT 28 % (70-76); BLOOD GAS VENOUS PCO2 46 mmHg (44-48); BLOOD GAS VENOUS PO2 25 mmHg (35-40); BLOOD GAS VENOUS pH 7.28 (7.360-7.400); TEMP CORR TO 98.6
[2016-11-25 02:25] LABS: CRITICAL VALUE YES; DRAW SITE CENTRAL LINE; FIO2 100 %; LITER FLOW 15 L/M; OXYGEN DEVICE NRB; STAT YES
[2016-11-25] MEDS ORDERED: DOPamine INJ PREMIX 500 ML ONE (02:33)
[2016-11-25 03:00] VITALS: BP 78/42; PULSE 52; RESP 26; O2SAT 87
[2016-11-25] MEDS: ATROPINE SULFATE 1 MG/ML VIAL IV PRN ×3 (03:00→03:50)
[2016-11-25] MEDS ORDERED: DOPamine 800 MG/D5W PREMIX 500 ML IV SCH (03:00)
[2016-11-25] MEDS ORDERED: NOREPINEPHRINE-DEXTROSE DRIP 250 ML IV ONE (03:12)
[2016-11-25] MEDS: MORPHINE SULFATE 4 MG/ML INJ IV PRN (03:30)
[2016-11-25 03:36] LABS: HEMATOCRIT 31.6 % (39.0-51.0); MEAN CORPUSCULAR HEMOGLOBIN 34.1 PG (27.0-34.0); MEAN CORPUSCULAR HGB CONC 33.8 % (32.0-36.0); PLATELET COUNT 84 TH/MM3 (150-450); RED BLOOD COUNT 3.13 MIL/MM3 (4.50-5.90); RED CELL DISTRIBUTION WIDTH 13.7 % (11.6-17.2); WHITE BLOOD COUNT 8.3 TH/MM3 (4.0-11.0)
[2016-11-25 03:43] LABS: REVIEW FLAG FINAL
[2016-11-25 03:59] LABS: BICARBONATE 23.1 MEQ/L (21.0-32.0); MAGNESIUM 1.6 MG/DL (1.5-2.5)
[2016-11-25 04:00] LABS: POTASSIUM 4.5 MEQ/L (3.5-5.1)
--- NOTE | 2016-11-25 06:23 | MA ---
cc: CONNER NEWBY MD, GLENN H. M.D. DATE 11/24/2016 PROCEDURE Difficult selective coronary angiography. PROCEDURE NOTES The patient was brought to the cardiac catheterization laboratory in a fasting state after having signed informed consent. The right radial area and right groin were prepped and draped as per policy. The right radial region was anesthetized with 1% lidocaine. Arterial access was obtained via the right radial artery and a 6-Azerbaijani sheath placed. Because of the tortuosity of the right subclavian and innominate vessels, it was extremely difficult manipulating catheters into the aortic root. We decided to do the case through a right femoral arteriotomy approach. The right groin was anesthetized with 1% lidocaine. Arterial access was obtained via the right femoral artery and a 6-Azerbaijani sheath placed. Coronary arteriography was performed using 6-Azerbaijani Rachael left 4.0 and 6-Azerbaijani Amplatz left 1.0 catheters. Left ventriculography was not done. There was excessive bleeding around the sheath during the case so it was eventually upsized to an 8-Azerbaijani sheath which slowed the oozing. A FemoStop device was also applied to achieve hemostasis. HEMODYNAMIC RESULTS Aorta 120/75 with a mean of 93. CORONARY ARTERIOGRAPHY The left main has severe 99% distal stenosis involving the takeoff of the left anterior descending and left circumflex. The left anterior descending is totally occluded proximally. There are no collaterals seen from the right coronary to the LAD. The left circumflex demonstrates probably 90% ostial stenosis. The left circumflex gives rise to fairly large branching obtuse marginal, the more medial branch of which has 70-75% ostial stenosis. The right coronary artery is a medium-sized dominant vessel with 90% stenosis very proximally. CONCLUSIONS Severe left main, severe three-vessel coronary artery disease. DISCUSSION The patient will be referred for bypass surgery. Bypass grafts could be placed to the right coronary artery, both branches of the obtuse marginal, possibly the LAD. Javier Quezada MD G[facility]/SSB /2:30 PM /6:18 AM [facility]OSPITALAntoinette
--- NOTE | 2016-11-25 07:05 | DEATH SUM ---
Pronouncement Date Pronounced : Nov 25, 2016 Time Of : 0409 Pronouncement Called to pronounce of patient. Identified patient as Misha Chan with wrist band MR# [id number]. Patient with no cardiac activity in 2 separate leads and no palpable/auscible cardiac activity. Patient with no spontaneous respirations, no corneal reflex or response to painful stimuli. Pupils fixed and dilated. Preliminary Cause of : Cardiac arrest Morris Dimas MD Nov 25, 2016 07:05
--- NOTE | 2016-11-25 07:23 | PD.CONS ---
[facility] Service Critical Care Medicine Consult Requested By Family medicine service Reason for Consult Symptomatic bradycardia Primary Care Physician Nikky Evangelista MD History of Present Illness This is an 85-year-old male with known coronary artery disease who presented to the hospital a few days ago with unstable angina and however went left heart catheterization yesterday which demonstrated 99% left main disease, 100% proximal LAD, 90% circumflex, 70% OM, 95% RCA disease. They did not percutaneously intervene on 80s lesions and instead sent him for consultation for cardiac surgery. Per the patient and his and the medical record, they discussed his surgical options with Dr. Elias and he was felt to be a nonsurgical candidate given that the risks of surgery given his age and comorbidities was too high. The plan was for medical management. A CODE BLUE was called for unresponsiveness. When I arrived the patient was severely bradycardic with heart rate in the 20s to 30s. He was symptomatic. He was given a milligram of atropine with resolution of his altered mental status. He was emergently transferred to the ICU for further management. Review of Systems ROS Limitations: Clinical Condition, Altered Mental Status Past Family Social History Allergies: Coded Allergies: Vioxx (Verified Allergy, Severe, Diarrhea, 11/22/16) Past Medical History Given the severity of the patient's critical illness, a complete past medical history was unobtainable. Patient does have a history of coronary artery disease. Past Surgical History Given the severity of patient's critical illness complete past surgical history is unobtainable. The patient had a left heart catheterization done yesterday. Reported Medications Unknown at the present time given the patient's critical illness. The patient does have a nitroglycerin drip hanging. Active Ordered Medications See MAR Family History Unknown given the severity of patient's critical illness at this time. Social History Unknown given the patient's very critical illness at this time Physical Exam Vital Signs Vital Signs Date Time Temp Pulse Resp B/P Pulse Ox O2 Delivery O2 Flow Rate FiO2 11/25/16 03:00 52 26 78/42 87 11/25/16 02:00 70 33 92/51 96 11/25/16 02:00 70 11/25/16 01:09 59 11/25/16 00:00 61 11/24/16 23:00 97.5 80 16 114/72 99 11/24/16 23:00 80 11/24/16 22:00 75 11/24/16 21:00 75 11/24/16 20:15 Nasal Cannula 2.00 11/24/16 20:00 80 11/24/16 19:30 61 11/24/16 19:30 97.5 80 16 113/56 99 11/24/16 18:00 75 11/24/16 17:00 67 11/24/16 16:00 62 11/24/16 15:00 97.4 63 19 114/72 95 11/24/16 15:00 66 11/24/16 13:00 63 11/24/16 12:00 61 11/24/16 11:00 97.2 62 20 117/76 93 11/24/16 11:00 60 11/24/16 10:19 97 Nasal Cannula 2.00 11/24/16 10:00 67 11/24/16 09:00 72 11/24/16 08:00 71 11/24/16 07:15 97.5 71 17 131/90 98 Physical Exam On my exam, there is an elderly male, lying in bed, altered. In severe distress due to symptomatic bradycardia. On telemetry it appears that is sinus bradycardia with a first-degree AV block and a wide QRS. Patient is cool to touch and poorly perfused. Patient is on a nonrebreather mask. SPO2 of 92% Laboratory Laboratory Tests Test 11/25/16 11/25/16 02:15 02:58 Blood Gas Puncture Site CENTRAL LINE Blood Gas Patient Temperature 98.6 Venous Blood pH 7.28 Venous Blood Partial Pressure 46 CO2 Venous Blood Partial Pressure 25 O2 Venous Blood HCO3 21 Venous Blood Oxygen Saturation 28 Venous Blood Oxygen Content 4.2 Venous Blood Base Excess -4.6 Oxygen Delivery Device NRB Blood Gas Liter Flow 15 Blood Gas Inspired Oxygen 100 White Blood Count 8.3 Red Blood Count 3.13 Hemoglobin 10.7 Hematocrit 31.6 Mean Corpuscular Volume 101.0 Mean Corpuscular Hemoglobin 34.1 Mean Corpuscular Hemoglobin 33.8 Concent Red Cell Distribution Width 13.7 Platelet Count 84 Mean Platelet Volume 12.4 Sodium Level 135 Potassium Level 4.5 Chloride Level 101 Carbon Dioxide Level 23.1 Anion Gap 11 Blood Urea Nitrogen 37 Creatinine 1.43 Estimat Glomerular Filtration 47 Rate Random Glucose 107 Calcium Level 8.2 Phosphorus Level 4.2 Magnesium Level 1.6 Result Diagram: 11/25/16 0258 11/25/16 0258 Assessment and Plan Assessment and Plan Assessment: This is an 85-year-old male with history of coronary artery disease and a left heart catheterization done yesterday with severe multivessel disease and really every vascular territory. The differential diagnosis for his symptomatic bradycardia would be anemia secondary to his left heart catheterization, electrolyte abnormalities, or ischemic bradycardia secondary to his severe multivessel disease. A stat hemoglobin was sent and came back at 10.1, sodium is unlikely that anemia is causing his symptomatic bradycardia. It is very likely that his ischemia is causing this. He was also very hypotensive. When we got to the ICU, I started a dopamine infusion to target a map > 65mmHg and try to augment his HR. However, this increased the demand on the myocardium, and the patient began to have unrelenting chest pain. We continued to give intermittent boluses of atropine to keep a HR > 60. At this point, I called the patient's to update her on the clinical change. We discussed the fact that with this degree of coronary artery disease , if he were to clinically continue to decline, it is unlikely that breathing tube or CPR would change the outcome, and serve only to add unnecessary harm to her without any medical benefit. She agreed, and thus we made the patient DNR/DNI. I encouraged her to come as soon as she was safe to come to the hospital to see him. I discussed the patient's care with the primary family medicine team, as well as twice with Dr. Jenkins, the on-call cement finisher. He agreed that medically there was no options available for him, and that transcutaneously or transvenously pacing the patient would not provide a durable solution to the patient's ischemic bradycardia, particularly if he were not a surgical or percutaneous candidate. Dr. Jenkins agreed that if the family were amenable, transition to palliation would be appropriate. Because of his persistent hypotension, and the fact that he had severe angina with dopamine, I started low-dose norepinephrine to help with coronary perfusion. However, despite this and the intermittent atropine, the patient remained hypotensive and bradycardic, and his chest pain returned, and again was unrelenting and severe. The patient was slightly altered, but still oriented to person and place, and could carry on a brief conversation about how he felt and what was going on. I explained to the patient that he was having a heart attack, and he was likely dying. He told me he did not want aggressive measures, but to "just let me go comfortably." I again called his and we decided together to transition our goals to comfort. The patient was given 2 mg morphine iv with relief of his agonal chest pain. With this, his hypotension worsened and he went into PEA arrest. He at 04:09am. Active Problems: Cardiogenic Shock Non-ST elevation myocardial infarction Symptomatic Bradycardia secondary to ischemia Severe multi-vessel coronary artery disease Metabolic encephalopathy Severe Angina This patient remained critically ill with multiple organ systems which were a threat to life. This note represents documented time that I spent in the care and management of this patient while our goals were aggressive and he remained critically ill, before the transition to palliation. I have spent in excess of 76 minutes discontinuously in the care and management of this patient. This time is exclusive of procedures, and includes, but is not limited to, evaluation of the patient, review of the medical record, discussions with family , consultants, nursing staff, or respiratory therapy, and documentation in the medical record. Code Status DNR/DNI Discussed Condition With the patient's , the family medicine team, Morris Bales MD Nov 25, 2016 07:23
--- NOTE | 2016-11-25 07:24 | HHI.DS ---
Summary Note Date of : Nov 25, 2016 Time Of : 408 Admission Date Nov 22, 2016 at 11:18 Admitting Diagnosis syncope, elevated troponin, thrombocytopenia Diagnosis at Time of : Brief History 85yM with severe CAD and multivessel disease who presented by code blue for symptomatic bradycardia, likely ischemic. CBC/BMP: 11/25/16 0258 11/25/16 0258 Significant Findings Laboratory Tests Test 11/22/16 11/22/16 11/22/16 11/22/16 09:50 12:30 18:02 22:24 Red Blood Count 3.83 MIL/MM3 (4.50-5.90) Hematocrit 38.9 % (39.0-51.0) Mean Corpuscular Volume 101.6 FL (80.0-100.0) Mean Corpuscular Hemoglobin 34.6 PG (27.0-34.0) Platelet Count 71 TH/MM3 (150-450) Mean Platelet Volume 11.7 FL (7.0-11.0) Neutrophils (%) (Auto) 87.3 % (16.0-70.0) Lymphocytes (%) (Auto) 7.3 % (9.0-44.0) Lymphocytes # (Auto) 0.4 TH/MM3 (1.0-4.8) Platelet Estimate LOW (NORMAL) Platelet Morphology Comment ENLARGED (NORMAL) Valerio Cells 1+ (NORMAL) Acanthocytes 1+ (NORMAL) Prothrombin Time 13.3 SEC (9.8-11.6) Sodium Level 134 MEQ/L (136-145) Chloride Level 97 MEQ/L (98-107) Blood Urea Nitrogen 20 MG/DL (7-18) Creatinine 1.44 MG/DL (0.60-1.30) Estimat Glomerular Filtration 47 ML/MIN (>89) Rate Random Glucose 156 MG/DL (74-106) Troponin I 1.81 NG/ML 16.10 NG/ML (0.02-0.05) (0.02-0.05) B-Type Natriuretic Peptide 1021 PG/ML (0-100) Activated Partial 67.6 SEC Thromboplast Time (24.3-30.1) Test 11/22/16 11/23/16 11/23/16 11/23/16 23:42 03:11 12:13 20:54 Troponin I 18.20 NG/ML (0.02-0.05) Red Blood Count 3.84 MIL/MM3 3.96 MIL/MM3 (4.50-5.90) (4.50-5.90) Hematocrit 38.4 % (39.0-51.0) Mean Corpuscular Hemoglobin 34.2 PG 34.2 PG (27.0-34.0) (27.0-34.0) Platelet Count 75 TH/MM3 85 TH/MM3 (150-450) (150-450) Mean Platelet Volume 12.1 FL 12.1 FL (7.0-11.0) (7.0-11.0) Activated Partial 48.1 SEC 40.3 SEC Thromboplast Time (24.3-30.1) (24.3-30.1) Sodium Level 134 MEQ/L (136-145) Chloride Level 97 MEQ/L (98-107) Blood Urea Nitrogen 29 MG/DL (7-18) Creatinine 1.55 MG/DL (0.60-1.30) Estimat Glomerular Filtration 43 ML/MIN (>89) Rate Aspartate Amino Transf 91 U/L (15-37) (AST/SGOT) Albumin 3.3 GM/DL (3.4-5.0) Mean Corpuscular Volume 100.1 FL (80.0-100.0) Neutrophils (%) (Auto) 79.2 % (16.0-70.0) Monocytes (%) (Auto) 8.8 % (0.0-8.0) Lymphocytes # (Auto) 0.8 TH/MM3 (1.0-4.8) Test 11/24/16 11/25/16 11/25/16 05:13 02:15 02:58 Red Blood Count 4.05 MIL/MM3 3.13 MIL/MM3 (4.50-5.90) (4.50-5.90) Mean Corpuscular Volume 100.7 FL 101.0 FL (80.0-100.0) (80.0-100.0) Platelet Count 82 TH/MM3 84 TH/MM3 (150-450) (150-450) Mean Platelet Volume 11.8 FL 12.4 FL (7.0-11.0) (7.0-11.0) Monocytes (%) (Auto) 11.1 % (0.0-8.0) Platelet Estimate LOW (NORMAL) Ovalocytes 1+ (NORMAL) Acanthocytes 2+ (NORMAL) Activated Partial 43.7 SEC Thromboplast Time (24.3-30.1) Sodium Level 132 MEQ/L 135 MEQ/L (136-145) (136-145) Chloride Level 95 MEQ/L (98-107) Blood Urea Nitrogen 36 MG/DL (7-18) 37 MG/DL (7-18) Creatinine 1.54 MG/DL 1.43 MG/DL (0.60-1.30) (0.60-1.30) Estimat Glomerular Filtration 43 ML/MIN (>89) 47 ML/MIN (>89) Rate B-Type Natriuretic Peptide 1620 PG/ML (0-100) Venous Blood pH 7.28 (7.360-7.400) Venous Blood Partial Pressure 25 mmHg (35-40) O2 Venous Blood HCO3 21 mmol/L (22-26) Venous Blood Oxygen Saturation 28 % (70-76) Venous Blood Oxygen Content 4.2 Vol % (9.0-17.0) Venous Blood Base Excess -4.6 mmol/L (-2-2) Hemoglobin 10.7 GM/DL (13.0-17.0) Hematocrit 31.6 % (39.0-51.0) Mean Corpuscular Hemoglobin 34.1 PG (27.0-34.0) Random Glucose 107 MG/DL (74-106) Calcium Level 8.2 MG/DL (8.5-10.1) Hospital Course Assessment: This is an 85-year-old male with history of coronary artery disease and a left heart catheterization done yesterday with severe multivessel disease and really every vascular territory. The differential diagnosis for his symptomatic bradycardia would be anemia secondary to his left heart catheterization, electrolyte abnormalities, or ischemic bradycardia secondary to his severe multivessel disease. A stat hemoglobin was sent and came back at 10.1, sodium is unlikely that anemia is causing his symptomatic bradycardia. It is very likely that his ischemia is causing this. He was also very hypotensive. When we got to the ICU, I started a dopamine infusion to target a map > 65mmHg and try to augment his HR. However, this increased the demand on the myocardium, and the patient began to have unrelenting chest pain. We continued to give intermittent boluses of atropine to keep a HR > 60. At this point, I called the patient's to update her on the clinical change. We discussed the fact that with this degree of coronary artery disease , if he were to clinically continue to decline, it is unlikely that breathing tube or CPR would change the outcome, and serve only to add unnecessary harm to her without any medical benefit. She agreed, and thus we made the patient DNR/DNI. I encouraged her to come as soon as she was safe to come to the hospital to see him. I discussed the patient's care with the primary family medicine team, as well as twice with Dr. Jenkins, the on-call high school computer science teacher. He agreed that medically there was no options available for him, and that transcutaneously or transvenously pacing the patient would not provide a durable solution to the patient's ischemic bradycardia, particularly if he were not a surgical or percutaneous candidate. Dr. Jenkins agreed that if the family were amenable, transition to palliation would be appropriate. Because of his persistent hypotension, and the fact that he had severe angina with dopamine, I started low-dose norepinephrine to help with coronary perfusion. However, despite this and the intermittent atropine, the patient remained hypotensive and bradycardic, and his chest pain returned, and again was unrelenting and severe. The patient was slightly altered, but still oriented to person and place, and could carry on a brief conversation about how he felt and what was going on. I explained to the patient that he was having a heart attack, and he was likely dying. He told me he did not want aggressive measures, but to "just let me go comfortably." I again called his and we decided together to transition our goals to comfort. The patient was given 2 mg morphine iv with relief of his agonal chest pain. With this, his hypotension worsened and he went into PEA arrest. He at 04:09am. Morris Dimas MD Nov 25, 2016 07:24
--- NOTE | 2016-11-25 08:21 | MB ---
cc: JOCELYNN ESQUIVEL DATE OF CONSULTATION 11/24/2016 REASON FOR CONSULTATION This is an 85 year-old male who was brought in by [facility] apparently became acutely weak at home, somewhat disoriented, found him to be unstable with some shaking and jerking movements. He denied any recent fevers or chills. They brought him into the emergency department. He had an initial troponin that was elevated at 0.18. Denied having any shortness of breath. No nausea, vomiting or diarrhea. He has multiple risk factors and per the , he is basically legally blind. He needs assistance with his ADLs. He has had some mild demand. He uses a walker to get around. He underwent cardiac cath today by Dr. Quezada showing a 99% left main, proximal LAD 100%, circ was 95, OM 70%, RCA 90%. The ramus was 95%. His EF is in the range of 20-25% with diffuse hypokinesis, systolic function severely reduced. No aortic stenosis or regurgitation. No evidence of mitral stenosis or regurgitation and tricuspid valve had some moderate regurgitation. PAST MEDICAL HISTORY Significant for: 1. Coronary artery disease with prior stent in the LAD [place] [address] Garrett. 2. Hepatitis 3. Hypertension 4. History of colitis. 5. History of obstructive sleep apnea refuses the C-PAP machine. PAST SURGICAL HISTORY Surgeries include: 1. Bilateral knee replacements 2. Appendectomy 3. Carpal tunnel surgery FAMILY HISTORY Positive for coronary disease in the family. SOCIAL HISTORY The patient is . No tobacco or alcohol. REVIEW OF SYSTEMS Unremarkable except for what is in the HPI. PHYSICAL EXAM On exam blood pressure 110/70, heart rate of 76, O2 sat 97 on 2 liters. GENERAL: The patient is awake, very [id number]. He has a pair of glasses with the left eye darkened. HEAD, EYES, EARS, NOSE, AND THROAT: Head is normocephalic. He is somewhat frail in appearance. He has some arcus senilis. NECK: Supple. No JVD. HEART: Heart sounds S1-S2, regular rate and rhythm. No rubs, murmurs, gallops. LUNGS: Diminished in the bases, otherwise clear to auscultation. ABDOMEN: Soft and nontender. No masses or organomegaly. EXTREMITIES: Reveals trace edema with palpable distal pulses. He has some bruising on his lower extremities in his left shoulder area from a recent fall per the . LABORATORY FINDINGS Shows sodium of 134, potassium was 2.8 which has been replaced, creatinine baseline was 1.44, troponin 18, BNP of 1000. ALLERGIES Include VIOXX. HOME MEDICATIONS Include: 1. Aspirin 2. Celexa 3. Plavix. 4. Flomax 5. Pravachol IMAGES Carotid ultrasound was unremarkable. Chest x-ray had some vascular congestion, bilateral infiltrates right greater than the left. IMPRESSION This is an 85-year-old male with multiple comorbidities with multivessel disease, EF of 20-25%. The patient has been evaluated and films have been reviewed by Dr. Jocelynn Esquivel. At this point, the patient has high risk for any surgery due to his fraility, his advanced age, multiple comorbidities, some dementia, inactivity that recommend medical therapy at this time. Dr. Esquivel did speak with the also that she would not be interested in any surgical procedures at this time. Further planning as per Dr. Jocelynn Esquivel. Dictated by ALAINA Pisano MD RACHEL Cuevas/RACHELL /3:47 PM /8:21 AM
--- NOTE | 2016-11-25 10:47 | EKG ---
Date Performed: 11/25/2016 Time Performed: 02:21:54 PTAGE: 85 years EKG: Sinus rhythm . Right bundle branch block Inferior infarct - age undetermined Lateral ST-T changes may be due to my ocardial ischemia Abnormal ECG Compared to prior tracing no significant change PREVIOUS TRACING : 11/23/2016 16.46 DOCTOR: Neri Garrett Interpretating Date/Time 11/25/2016 10:43:46
[2016-11-25] MEDS ORDERED: ATROPINE SULFATE 1 MG/10 ML SYRINGE IV ONE (11:50)
[2016-11-25] MEDS ORDERED: EPINEPHrine HCL (1:10,000) 1 MG/10 ML SYRINGE IV ONE (11:51)
[2016-11-25] MEDS ORDERED: SODIUM BICARBONATE 8.4% INJ 50 MEQ/50 ML SYR IV ONE (11:52)
== END 2016-11-25 07:38 | disposition expired ==
LOC: NEPC 09:19 → NEDA 11:18 → HCIN 16:57 → N03A 11-25 02:10
PROVIDERS: ADMIT Family Medicine; ATTEND Family Medicine
PROC: B2111ZZ Fluoroscopy of Multiple Coronary Arteries using Low Osmolar Contrast (ICD-10-PCS; 2016-11-24)
PROC: 4A023N7 Measurement of Cardiac Sampling and Pressure, Left Heart, Percutaneous Approach (ICD-10-PCS; principal; 2016-11-24 12:15)
DX: I21.4 Non-ST elevation (NSTEMI) myocardial infarction (principal); G93.41 Metabolic encephalopathy; R57.0 Cardiogenic shock; N17.9 Acute kidney failure, unspecified; I95.9 Hypotension, unspecified; D69.6 Thrombocytopenia, unspecified; E87.1 Hypo-osmolality and hyponatremia; I25.82 Chronic total occlusion of coronary artery; R00.1 Bradycardia, unspecified; I97.410 Intraoperative hemorrhage and hematoma of a circulatory system organ or structure complicating a cardiac catheterization; D64.9 Anemia, unspecified; I45.10 Unspecified right bundle-branch block; I25.110 Atherosclerotic heart disease of native coronary artery with unstable angina pectoris; I10 Essential (primary) hypertension; I25.2 Old myocardial infarction; E78.5 Hyperlipidemia, unspecified; G47.33 Obstructive sleep apnea (adult) (pediatric); N40.0 Benign prostatic hyperplasia without lower urinary tract symptoms; R55 Syncope and collapse; Y84.0 Cardiac catheterization as the cause of abnormal reaction of the patient, or of later complication, without mention of misadventure at the time of the procedure; Z95.5 Presence of coronary angioplasty implant and graft; Z79.82 Long term (current) use of aspirin; Z88.6 Allergy status to analgesic agent; Z23 Encounter for immunization
CPT/HCPCS: 70450; 71010; 76937; 80048; 80053; 82805; 83735; 83880; 84100; 84484; 85002; 85025; 85027; 85347; 85610; 85730; 90471; 90732; 93005; 93306; 93454; 93880; 96360; C1769; C1893; G0009; J0171; J0461; J1265; J1644; J1940; J2250; J2270; J3010; J3246; J7030; J7040; Q9967